=== PATIENT | male | born 1970 | race Caucasian/White ===

== ENCOUNTER 2022-06-26 02:07 | Outpatient (CLI) | payer OTHER, SELFPAY ==
[2022-06-26 07:29] LABS: HCT 45.5 % (40.0-50.0); HGB 15.1 g/dL (13.5-17.5); MCH 27.6 pg (27.0-33.0); MCHC 33.2 % (32.0-36.0); MCV 83 fL (80-95); MPV 9.6 fL (8.0-11.0); Platelet Count 155 10^3/uL (130-400); RBC 5.47 10^6/uL (4.36-5.78); RDW 12.5 % (11.8-14.1); RDW-SD 38.3 fL; WBC 6.96 10^3/uL (4.4-10.8)
[2022-06-26 08:52] LABS: ALT 28 U/L (16-63); AST 18 U/L (15-37); Albumin 3.6 g/dL (3.4-5.0); Alkaline Phosphatase 68 U/L (46-116); Anion Gap 9.9 mmol/L (3-11); BUN 12 mg/dL (7-18); Bilirubin, Total 0.4 mg/dL (0.2-1.0); CO2 27.1 mmol/L (21.0-32.0); Calcium 8.9 mg/dL (8.5-10.1); Chloride 105 mmol/L (98-107); Cholesterol 257 mg/dL (<200); Glucose 164 mg/dL (74-106); HDL Cholesterol 35 mg/dL (40-60); Potassium 4.3 mmol/L (3.5-5.1); Sodium 142 mmol/L (136-145); Total Protein 7.2 g/dL (6.4-8.2); Triglyceride 603 mg/dL (<150)
[2022-06-26 09:27] LABS: LDL CHOLESTEROL 89 mg/dL (<100)
== END 2022-06-26 02:08 | disposition home or self-care (01) ==
LOC: LBO 02:07
PROVIDERS: PCP Nurse Practitioner; Visit Provider Nurse Practitioner
DX: R73.03 Prediabetes; E66.01 Morbid (severe) obesity due to excess calories; E78.1 Pure hyperglyceridemia
CPT/HCPCS: 36415; 80053; 80061; 83721; 85027

== ENCOUNTER 2022-10-14 11:11 | Emergency (ER) | payer MEDICAID, SELFPAY ==
[2022-10-14 11:16] VITALS: BP 131/84; PULSE 86; RESP 14; TEMP 36.6; O2SAT 97
--- NOTE | 2022-10-14 12:00 | DI.RAD_ITS ---
Exam(s) XR FOOT LT COMPLETE EXAM: XR FOOT LT COMPLETE CLINICAL HISTORY: 1st MTP pain. TECHNIQUE: 2D digital imaging was performed of the left foot. Three images were obtained. AP, obli que and lateral views were obtained. COMPARISON: No exams were available for comparison FINDINGS: BONES: No acute fracture is present. No bony destructive lesion is seen. There is an enthesophyte at the posterior calcaneus. JOINTS: No dislocation present. The 1st MTP joint is well maintained. No erosions are seen. SOFT TISSUE: There is mild soft tissue swelling of the foot. No radiopaque foreign bodies. IMPRESSION: No acute fracture or dislocation. If there is concern for an occult fracture, consider follow-up x-r ay in 10-14 days. DATA REPOSITORY: RADIATION DOSE DELIVERED:
--- NOTE | 2022-10-14 12:11 | ED.GENADUL_ITS ---
Discharge Plan Disposition Patient Disposition: Home Discharge Details Clinical Impression: Swelling of first metatarsophalangeal (MTP) joint of left foot, Gout Primary Care Provider: Tammy Costello ED Provider: Edwin Cazares Home Meds and New Rx's Prescriptions: New colchicine 0.6 mg tablet 0.6 mg PO BID Qty: 20 0RF Rx Instructions: Please take twice a day until 2 days after symptoms of gout have resolved. Continued rosuvastatin [Crestor] 20 mg Tablet 20 mg PO DAILY Discharge Instructions Instructions: Gout (ED) Additional Instructions: You were seen in the emergency department for pain and swelling of your left first toe. Based off of the location you are likely experiencing podagra which is a presentation of gout with swelling and redness at your first joint of your first toe on the left. We performed an x-ray and some labs that were unremarkable. We offered to perform a joint aspiration of that digit but you wanted to hold off which I think is very reasonable. I sent a prescription for colchicine. Take this until 2 days after your symptoms resolve. You can also take ibuprofen 600 mg every 6 hours for discomfort for the next 5 days. You take at 1000 mg of Tylenol every 6 hours for the next 5 days. Follow-up with your primary care doctor about this visit. Return for any worsening symptoms, high fevers chills, or if the redness and swelling extends up the foot or up the leg. Referrals: Tammy Costello, [employer] [Primary Care Provider] - 1 week Discharge Data Discharge Physician: Edwin Cazares Medical Decision Making 52-year-old gentleman with history of hyperlipidemia presents with swelling and pain to the left first MTP. Based off clinical exam I suspect this represents gout. No history of trauma but will get x-ray to rule out fracture. Doubt infection given no other systemic symptoms and patient has a very high or at least a score of 9 on the acute gout diagnosis rule with a serum uric acid still pending. I offered to perform arthrocentesis of the left first MTP for the patient but he would like to hold off on this at this time which I think is very reasonable given very low clinical suspicion for septic arthritis of the left first MTP. Has had this in the joint in the past and also in the other foot which raises the clinical suspicion for gout. We will provide some analgesia While awaiting x-ray and uric acid level and reevaluate. Assuming patient's pain is improved and x-ray is unremarkable we will discharge with prescription for colchicine and have him take Tylenol and ibuprofen and have him follow-up with his primary care doctor. Medical Records Medical records reviewed: Yes I reviewed the patient's medical records. Imaging Data Radiologic Study: Imaging: X-Ray (left foot xray) My impression: Unremarkable Lab Data Lab results reviewed: Yes I reviewed the patient's lab results. Labs: Labs grossly unremarkable HPI General Mode of arrival: ambulatory . Date/Time Provider Initiated Documentation: 10/14/22 11:33 . Limitations to Documentation: no limitations . Information obtained by: patient and family . HPI Narrative: 52-year-old gentleman with history of hyperlipidemia is presenting with left first MTP pain. Says it started about his his EKG 48 to 72 hours ago. Worsening pain at that joint with redness and swelling. Says he had something similar in the past in the right first MTP. Has had it come and go and is never last this long. He took 1 dose of ibuprofen but had not had any improvement in symptoms. No fevers or chills. Denies any other rashes or lesions. Denies any trauma or injury. Denies any other complaints. Related Data Home Medications Medication Instructions Recorded Confirmed colchicine 0.6 mg tablet 0.6 mg PO BID #20 tabs 10/14/22 rosuvastatin 20 mg tablet (Crestor) 20 mg PO DAILY 10/14/22 10/14/22 Previous Rx's Medication Instructions Recorded colchicine 0.6 mg tablet 0.6 mg PO BID #20 tabs 10/14/22 Allergies Allergy/AdvReac Type Severity Reaction Status Date / Time Iodine and Iodide Containing Allergy Unknown Verified 10/14/22 11:20 Produc buprenorphine [From Buprenex] Allergy Verified 10/14/22 11:20 General Stated Complaint: GenMedical BEATRICE: 4 Review of Systems Constitutional Constitutional: Denies chills, Denies fever(s) and Denies headache(s) Eyes Eyes: Denies change in vision ENT Ears, Nose, Mouth, and Throat: Denies headache(s) and Denies odynophagia Cardiovascular Cardiovascular: Denies chest pain and Denies dyspnea Respiratory Respiratory: Denies dyspnea Gastrointestinal Gastrointestinal: Denies abdominal pain, Denies diarrhea, Denies nausea, Denies odynophagia and Denies vomiting Genitourinary Genitourinary: Denies dysuria Musculoskeletal Musculoskeletal: Denies myalgias Comments: painful, swollen and red 1st MTP of the left foot. Integumentary/Breasts Skin/Breast: Denies changing lesions Neurologic Neurologic: Denies behavioral changes and Denies headache(s) Psychiatric Psychiatric: Denies behavioral changes Endocrine Endocrine: Denies heat intolerance Hematologic/Lymphatic Hematologic/Lymphatic: Denies lymphadenopathy PFSH All Active Problems (Updated 10/14/22 @ 12:20 by Edwin Cazares MD) Swelling of first metatarsophalangeal (MTP) joint of left foot (Acute) Gout (Chronic) Morbid obesity with BMI of 45.0-49.9, adult (Acute) Hx of cholecystectomy (Chronic) Pre-diabetes (Acute) Hypertriglyceridemia (Acute) Intra-abdominal adhesions (Chronic) Counseled at [facility] that he will likely eventually need a complex revision in the future Medical History 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 Dr. Anderson Surgical History History of cholecystectomy 2005? 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, [employer] Sexually active: Yes Do you think of yourself as: straight/heterosexual Current gender identity: male What is your relationship status?: How often do you talk on the phone with friends or family?: three or more times per week How often do you get together with friends or relatives?: three or more times per week Do you belong to any clubs or organized social groups?: no Panel score (0-1 are the most socially isolated patients): 2 What type of physical activity do you participate in: none Nataly/Baptism: Mandaeism Special nataly needs: No Seatbelt use: sometimes Helmet use: No Drive intox or ride w/intox charter driver: No Working smoke detector in home: Yes Fire extinguisher in home: Yes Carbon monox detector in home: Yes Do you feel safe at home: Yes Do you feel safe in your relationship?: Yes Exam Const General: cooperative Nutritional Appearance: average body habitus Orientation: alert, awake and oriented x3 HENMT Head: normal to inspection Ears: external ears normal Mouth: moist mucous membranes Eyes Pupils: PERRL EOM: EOM intact bilaterally and No nystagmus Neck Neck: full ROM and no tracheal deviation Chest Chest: normal inspection of the chest Resp Auscultation: clear to auscultation bilaterally Cardio Rate: regular rate Rhythm: regular rhythm GI Inspection: normal to inspection Palpation: soft, no guarding, not rigid and nontender Back/Spine/Pelvis Back: No no CVA tenderness Thoracic/Lumbar Spine: thoracic and lumbar spine normal to inspection Skin General skin exam: no rashes or lesions noted Neuro General: patient alert, patient awake and patient oriented x3 Cranial Nerves: CN's II-XI intact bilaterally, PERRL and no nystagmus Cognition: normal cognition Motor: muscle tone normal throughout and strength 5/5 throughout Sensory Exam: no sensory deficits noted Extrem General: normal to inspection Other: Swelling redness and tenderness to the first MTP of the left foot. No other surrounding redness or tenderness. Full range of motion of all joints of the bilateral lower extremities. 2+ DP and PT pulses. Sensation and motor intact in the bilateral lower extremities. No other rashes or lesions. Course Vital Signs Vital signs: Vital Signs Temperature 36.6 C 10/14/22 11:16 Pulse 86 10/14/22 11:16 Respiratory Rate 14 10/14/22 11:16 Blood Pressure 131/84 10/14/22 11:16 Pulse Oximetry 97 10/14/22 11:16 Temperature 36.6 C 10/14/22 11:16 Temperature Source Tympanic 10/14/22 11:16 Pulse 86 10/14/22 11:16 Respiratory Rate 14 10/14/22 11:16 Respiratory Effort Normal, Non-Labored 10/14/22 11:22 Blood Pressure 131/84 10/14/22 11:16 Blood Pressure Position Sitting 10/14/22 11:16 Pulse Oximetry 97 10/14/22 11:16 Oxygen Delivery Method Room Air 10/14/22 11:16 Oxygen Flow Rate 0 10/14/22 11:16 Pain Level 4 10/14/22 11:16
[2022-10-14] MEDS: Colchicine 0.6 MG TAB PO (12:26)
[2022-10-14] MEDS: Ibuprofen 600 MG TAB PO (12:26)
[2022-10-14] MEDS: Acetaminophen 500 MG TAB 1000 MG PO (12:26)
[2022-10-14 12:46] LABS: Abs Immature Grans 0.02 10^3/uL (0.0-0.06); Absolute Basophil Count 0.03 10^3/uL (0.0-0.2); Absolute Eosinophil Count 0.11 10^3/uL (0.0-0.7); Absolute Lymphocyte Count 1.37 10^3/uL (1.2-3.4); Absolute Monocyte Count 0.43 10^3/uL (0.1-0.8); Absolute Neutrophil Count 4.27 10^3/uL (1.2-6.7); Basophils % 0.5; Eosinophils % 1.8; HCT 43.7 % (40.0-50.0); HGB 14.8 g/dL (13.5-17.5); Immature Grans % 0.3; MCHC 33.9 % (32.0-36.0); MCV 83 fL (80-95); MPV 9.7 fL (8.0-11.0); Monocytes % 6.9; Neutrophils % 68.5; Platelet Count 170 10^3/uL (130-400); RBC 5.28 10^6/uL (4.36-5.78); RDW 12.6 % (11.8-14.1); RDW-SD 38.2 fL; WBC 6.23 10^3/uL (4.4-10.8)
[2022-10-14 12:48] LABS: ESR 13 mm/hr (0-20)
[2022-10-14 12:58] LABS: ALT 33 U/L (16-63); AST 17 U/L (15-37); Albumin 3.7 g/dL (3.4-5.0); Alkaline Phosphatase 69 U/L (46-116); Anion Gap 7.1 mmol/L (3-11); BUN 14 mg/dL (7-18); Bilirubin, Total 0.5 mg/dL (0.2-1.0); C-Reactive Protein 0.92 mg/dL (0.0-0.3); CO2 25.9 mmol/L (21.0-32.0); Calcium 8.8 mg/dL (8.5-10.1); Chloride 108 mmol/L (98-107); Glucose 160 mg/dL (74-106); Potassium 4.3 mmol/L (3.5-5.1); Sodium 141 mmol/L (136-145); Total Protein 7.4 g/dL (6.4-8.2); Uric Acid 6.9 mg/dL (3.5-7.2)
--- NOTE | 2022-10-14 13:12 | DI.VRAD_ITS ---
PROCEDURE INFORMATION: Exam: XR Left Foot Exam date and time: 10/14/2022 12:57 PM Age: 52 years old Clinical indication: Other: Lat mtp pain TECHNIQUE: Imaging protocol: Radiologic exam of the left foot. Views: 3 or more views. COMPARISON: No relevant prior studies available. FINDINGS: Bones/joints: No acute fracture or malalignment small plantar and dorsal calcaneal spurs. Normal variant stated process. No agressive bone destruction. Soft tissues: Soft tissue swelling, predominantly of the dorsal forefoot. IMPRESSION: 1. No acute osseous findings. Soft tissue swelling, predominantly of the dorsal forefoot. 2. If clinical concern for occult fracture, consider followup radiographs in 10-14 days. Dictated and Authenticated by: Shira Barnett MD. Ordering:ROSMERY Pineda MD
[2022-10-14 13:28] VITALS: BP 131/84; PULSE 86; RESP 14; TEMP 36.6; O2SAT 97
== END 2022-10-14 13:28 | disposition home or self-care (01) ==
PROVIDERS: Emergency Provider Student in an Organized Health Care Education/Training Program; PCP Nurse Practitioner
DX: M10.9 Gout, unspecified (principal); M25.475 Effusion, left foot
CPT/HCPCS: 36415; 80053; 85652; 99283; 73630; 84550; 85025; 86140

== ENCOUNTER 2022-11-05 03:15 | Outpatient (CLI) | payer MEDICAID, SELFPAY ==
[2022-11-05 12:07] LABS: Calculated LDL 41 mg/dL (<100); Cholesterol 153 mg/dL (<200); HDL Cholesterol 36 mg/dL (40-60); Triglyceride 382 mg/dL (<150)
[2022-11-05 12:28] LABS: Vitamin D 25 Total 10.7 ng/mL (30-100)
[2022-11-06 09:46] LABS: Hepatitis C Ab w Rflx HCV PCR Negative (Negative)
[2022-11-06 11:11] LABS: HIV-1/2 Ag & Ab Screen Negative (Negative)
== END 2022-11-05 03:16 | disposition home or self-care (01) ==
LOC: LBO 03:15
PROVIDERS: PCP Nurse Practitioner; Visit Provider Nurse Practitioner
DX: E78.1 Pure hyperglyceridemia; E55.9 Vitamin D deficiency, unspecified; H93.11 Tinnitus, right ear; H90.41 Sensorineural hearing loss, unilateral, right ear, with unrestricted hearing on the contralateral side
CPT/HCPCS: 36415; 80061; 82306; 86803; 87389

== ENCOUNTER 2022-12-03 02:51 | Outpatient (CLI) | payer MEDICAID, SELFPAY ==
--- NOTE | 2022-12-03 07:15 | DI.MRI_ITS ---
Exam(s) MR IAC BRAIN WO/W EXAM: MR IAC BRAIN WO/W CLINICAL HISTORY: asymmetrical hearing loss, tinnitus rt ear,h90.3,h93.11. TECHNIQUE: Multiplanar multisequence MRI of the brain and internal auditory canals was performed. CONTRAST MATERIAL: IV Contrast: 20 mL of Dotarem contrast administered. COMPARISON: There are no priors for comparison. FINDINGS: VENTRICLES AND EXTRA AXIAL SPACES: Normal in size and morphology for the patient's age. HEMORRHAGE: None. CEREBRAL PARENCHYMA: No focus of restricted diffusion to suggest acute infarct. No space-occupying le carmen identified. There are few nonspecific foci of hyperintense signal in the white matter on the T2 and FLAIR images which may represent early small vessel ischemic disease. MIDLINE SHIFT: None. BRAINSTEM/CEREBELLUM: Normal. CALVARIUM: Normal. ENHANCEMENT: No suspicious enhancement identified. VISUALIZED PARANASAL SINUSES/MASTOIDS: Mucous retention cysts or polyps are seen in the maxillary sin uses bilaterally. [place]: Normal flow void. PITUITARY GLAND: Unremarkable. IAC/CP ANGLE: The internal auditory canals are within normal limits. The cerebellar pontine angles ar e unremarkable. No enhancing lesions are seen. Visualized portion of the facial nerves appear within normal limits. OTHER FINDINGS: None. IMPRESSION: 1. There is no enhancing mass seen in the IAC's. 2. Nonspecific white matter signal which may represent early small vessel ischemic disease. 3. Mucous retention cysts or polyps in the maxillary sinuses bilaterally. 4. No evidence of an acute infarct. DATA REPOSITORY:
[2022-12-03] MEDS: Normal Saline Flush 10 ML SYR IVP (10:05)
[2022-12-03] MEDS: Gadoterate meglumine 20 ML SYRINGE IVP (10:06)
== END 2022-12-03 03:11 ==
LOC: DI 02:51
PROVIDERS: PCP Nurse Practitioner; Visit Provider Registered Nurse Maternal Newborn
DX: H90.3 Sensorineural hearing loss, bilateral (principal); H93.11 Tinnitus, right ear; J34.1 Cyst and mucocele of nose and nasal sinus
CPT/HCPCS: 70553

== ENCOUNTER 2023-01-24 02:24 | Outpatient (CLI) | payer BC, SELFPAY ==
[2023-01-24 11:23] LABS: Anion Gap 3.7 mmol/L (3-11); BUN 12 mg/dL (7-18); CO2 30.3 mmol/L (21.0-32.0); Chloride 104 mmol/L (98-107); Glucose 167 mg/dL (74-106); Potassium 4.1 mmol/L (3.5-5.1); Sodium 138 mmol/L (136-145)
== END 2023-01-24 02:25 | disposition home or self-care (01) ==
PROVIDERS: PCP Nurse Practitioner; Visit Provider Internal Medicine Cardiovascular Disease
DX: I10 Essential (primary) hypertension (principal)
CPT/HCPCS: 36415; 80048

== ENCOUNTER 2023-08-19 04:22 | Outpatient (CLI) | payer BC, MEDICAID, SELFPAY ==
[2023-08-19 14:25] LABS: ALT 36 U/L (16-63); AST 17 U/L (15-37); Albumin 3.7 g/dL (3.4-5.0); Alkaline Phosphatase 76 U/L (46-116); Anion Gap 10.9 mmol/L (3-11); BUN 15 mg/dL (7-18); Bilirubin, Total 0.6 mg/dL (0.2-1.0); CO2 26.1 mmol/L (21.0-32.0); Calcium 9.1 mg/dL (8.5-10.1); Chloride 107 mmol/L (98-107); Cholesterol 234 mg/dL (<200); Estimated GFR 89.44 (mL/min/1.73m2); Glucose 108 mg/dL (74-106); HDL Cholesterol 39 mg/dL (40-60); Sodium 144 mmol/L (136-145); Total Protein 7.3 g/dL (6.4-8.2); Triglyceride 469 mg/dL (<150)
[2023-08-19 14:46] LABS: Vitamin D 25 Total 20.5 ng/mL (30-100)
[2023-08-19 15:03] LABS: LDL CHOLESTEROL 87 mg/dL (<100)
== END 2023-08-19 04:23 | disposition home or self-care (01) ==
LOC: LBO 04:22
PROVIDERS: PCP Nurse Practitioner; Visit Provider Nurse Practitioner
DX: E78.2 Mixed hyperlipidemia (principal); I71.21 Aneurysm of the ascending aorta, without rupture; E55.9 Vitamin D deficiency, unspecified
CPT/HCPCS: 36415; 80053; 80061; 82306; 83721

== ENCOUNTER 2023-11-18 09:35 | Emergency (ER) | payer MEDICAID, SELFPAY ==
[2023-11-18] VITALS (55 sets, daily range): BP systolic 88–165; BP diastolic 51–92; PULSE 88–122; RESP 8–32; TEMP 37.5–40; O2SAT 91–98
--- NOTE | 2023-11-18 09:30 | DI.CT_ITS ---
Exam(s) CT THORAX ABD/PEL CTA EXAM: CT THORAX ABD/PEL CTAzz CLINICAL HISTORY: Fever, Hx of Aortic Anuerysm. TECHNIQUE: Imaging Protocol: Axial CT angiography was performed with multi-slice acquisition and m ulti-planar and/or 3D reconstructions. CONTRAST MATERIAL: Intravenous: Omnipaque 350 Contrast volume:structured data in ml Oral: no COMPARISON: No exams were available for comparison FINDINGS: CHEST: Pulmonary Arteries: No evidence of filling defect to suggest pulmonary emboli. Tracheobronchial tree: Patent where visualized. Mediastinum and [place]: No dominant adenopathy or fluid collection. Pulmonary parenchyma: No consolidation or dominant measurable mass. No architectural distortion. Pleura: No effusion or pneumothorax. Heart: The heart is not dilated. Mild coronary artery calcifications are seen. Aorta: Thoracic aorta non-dilated. No significant atherosclerotic changes. Bones: Normal. Tubes, Catheters, and Lines: ABDOMEN AND PELVIS: Abdomen: Celiac axis/mesenteric arteries: No evidence of occlusion or significant stenosis. Renal Arteries: No evidence of occlusion or significant stenosis. Single right renal artery. Two le ft renal arteries, with accessory left renal artery to upper pole. Aorta: No evidence of occlusion or significant stenosis. No aneurysm or dissection. No significant atherosclerotic changes Pelvis: Iliac Arteries: No evidence of occlusion or significant stenosis. Common Femoral Arteries: No evidence of occlusion or significant stenosis. ABDOMEN: Liver: Normal density. No measurable mass. Portal, Superior Mesenteric, and Splenic Veins: Unremarkable. Gallbladder and Biliary Tract: Cholecystectomy. No radiodense calculus or dilation. Pancreas: Normal density, no abnormal calcifications or inflammatory process. Spleen: Normal. Adrenals: No masses seen. Kidneys: Normal size, contour and axis. Small nonobstructing stone lower pole left kidney. No masses seen. Bowel: No obstruction or bowel wall thickening. Appendix is unremarkable. Peritoneal Cavity: No ascites, collection or mesenteric inflammatory response. Lymph Nodes: Within normal limits. Bones: Unremarkable. Soft Tissues: Small fatty containing left inguinal hernia. Some dehiscence of the anterior are abdom inal wall musculature. PELVIS: Bladder: Symmetric distention, no gross wall thickening. Reproductive Organs: Prostate enlarged. Lymph Nodes: Within normal limits. Bones: Within normal limits. IMPRESSION: Normal CT Angiogram of the chest, abdomen and pelvis. No acute abnormality in the chest abdomen or p caren. RADIATION DOSE DELIVERED: 2,564.24mGy.cm Total DLP DATA REPOSITORY: All CT scans at this facility are submitted to the National Radiology Data Registry (NRDR) Dose Index Registry (DIR) with the [employer] (ACR). RADIATION OPTIMIZATION: All CT scans at this facility use at least one of these dose optimization te chniques: automated exposure control; mA and/or kV adjustment per patient size (includes targeted exa ms where dose is matched to clinical indication); or iterative reconstruction.
--- NOTE | 2023-11-18 09:30 | RT.EKG_ITS ---
APPROVED REPORT Exam: Resting ECG Reason for Exam: High Fever Patient Location: E HR:108 bpm ECG Measurements Heart Rate 108 AXIS MT 154 P 15 QRSd 92 QRS 70 QT 319 T 30 QTc 428 Conclusion Sinus tachycardia...rate> 99
--- NOTE | 2023-11-18 09:44 | W.ED.GENAD ---
Discharge Plan Disposition Patient Disposition: Home Condition: Stable Discharge Details Clinical Impression: Fever, Vomiting, Hypomagnesemia Primary Care Provider: Tammy Costello ED Provider: Adelaida Gonzales Home Meds and New Rx's Prescriptions: New cephalexin 500 mg capsule 500 mg PO BID 10 Days Qty: 20 0RF Rx Instructions: Take 1 tablet twice daily by mouth for the next 10 days ondansetron 4 mg tablet,disintegrating 4 mg PO Q8H 5 Days Qty: 15 0RF No Action losartan 25 mg tablet 25 mg PO DAILY cholecalciferol (vitamin D3) 1,250 mcg (50,000 unit) capsule 1,250 mcg PO QWEEK Qty: 12 3RF atorvastatin 40 mg tablet 40 mg PO QPM Qty: 90 1RF metformin 500 mg tablet extended release 24 hr 1,000 mg PO BID Qty: 180 1RF Discharge Instructions Instructions: Low Magnesium Level, Fever, Adult ED, Nausea and vomiting in adults Additional Instructions: This time you have had a very high fever. There is no evidence of aneurysm, heart attack, or infection. CT abdomen pelvis was completed. You have slightly elevated white blood cell count of 14, your magnesium was slightly low which was given to you here. Please consider taking medications to supplement this over the next couple of days and food content high in magnesium. Take the nausea medication as directed. Follow up with primary care provider in 3-5 days. Return to ED sooner if any worsening or concerns. Increase oral fluids. Return to the ER for any worsening fever, worsening abdominal pain, nausea vomiting diarrhea or concerns. Continue your other medications as previously prescribed. Referrals: Tammy Costello, RONALD [Primary Care Provider] - 5 days Discharge Data Discharge Date/Time-TO BE ENTERED AT DEPARTURE: 11/18/23 15:19 HPI General Mode of arrival: EMS. Date/Time Provider Initiated Documentation: 11/18/23 09:40. Limitations to Documentation: no limitations. Information obtained by: patient, EMS, RN notes reviewed and old records reviewed. HPI Narrative: 53-year-old male presents to the ER via EMS with a chief complaint of fever of [id number] on scene he was found and seen on his in his car after driving [place]. He reports that last night he took his son's fishing. He does have rigors upon arrival he is alert and oriented denies any chest pain or abdominal pain, he is hypertherapeutic. Other past medical history includes high cholesterol hypertension, diabetes does take metformin, and a 4 cm aortic aneurysm. He reports that it began with his leg hurting which has since resolved. Other past medical history includes snoring and Meckel's diverticulum. Related Data Home Medications Medication Instructions Recorded Confirmed losartan 25 mg tablet 25 mg PO DAILY 01/15/23 11/18/23 atorvastatin 40 mg tablet 40 mg PO QPM #90 tabs 08/20/23 11/18/23 cholecalciferol (vitamin D3) 1,250 1,250 mcg PO QWEEK #12 caps 08/20/23 11/18/23 mcg (50,000 unit) capsule metformin 500 mg tablet,extended 1,000 mg (2 x 500 mg) PO BID #180 09/23/23 11/18/23 release 24 hr tabs cephalexin 500 mg capsule 500 mg PO BID fever 10 days #20 11/18/23 caps ondansetron 4 mg disintegrating 4 mg PO Q8H 5 days #15 tabs 11/18/23 tablet Previous Rx's Medication Instructions Recorded atorvastatin 40 mg tablet 40 mg PO QPM #90 tabs 08/20/23 cholecalciferol (vitamin D3) 1,250 1,250 mcg PO QWEEK #12 caps 08/20/23 mcg (50,000 unit) capsule metformin 500 mg tablet,extended 1,000 mg (2 x 500 mg) PO BID #180 09/23/23 release 24 hr tabs cephalexin 500 mg capsule 500 mg PO BID fever 10 days #20 11/18/23 caps ondansetron 4 mg disintegrating 4 mg PO Q8H 5 days #15 tabs 11/18/23 tablet Allergies Allergy/AdvReac Type Severity Reaction Status Date / Time buprenorphine [From Buprenex] Allergy unknown Verified 11/18/23 10:28 Iodine and Iodide Containing AdvReac Mild Nausea Verified 11/18/23 10:28 Produc General Stated Complaint: Fever BEATRICE: 3 Review of Systems All systems reviewed & are unremarkable except as noted in HPI and below Constitutional Constitutional: Reports as per HPI, Reports body ache(s), Reports chills and Reports fever(s) Musculoskeletal Musculoskeletal: Reports as per HPI and Reports muscle cramps Exam Narrative Exam Narrative: Constitutional: Alert and oriented x3. Appears stated age. Obese body habitus. Upon arrival patient is having rigors, febrile, alert and oriented hot to touch, tachycardic. Head: Normocephalic, no trauma. Eyes: Pupils PERRL, Red reflex noted, EOM's intact. Eyelids symmetrical without lesions, discharge, or swelling. ENT: Bilateral TM's WNL, External ear normal to inspection, no mastoid TTP, swelling, or erythema, Nasal turbinates WNL, no nasal discharge. Normal dentition, Posterior pharynx WNL, no exudate. Chest: Sinus tachycardia, normal S1, S2, distal pulses intact. Resp: Lungs clear to auscultation bilaterally, no wheezes, rales, or rhonchi. Abdomen: Soft, non-distended, Normoactive bowel sounds all 4 quads. Musculoskeletal: unable to assess gait, DTRs intact bilaterally, no wounds or lesions noted, does have small amount of sunburn noted to his bilateral anterior shins, moves all 4 extremities without difficulty. Skin: He does have some healed surgical scars noted to his CHARIS umbilicus and right upper quadrant, he also has a lesion which she reports that he injured his belly while at work seems to be healing, no drainage surrounding erythema or induration noted, capillary refill less than 2 sec. Neurologic: Cranial nerves II-XII intact. Alert and oriented x 3. Motor: No deficits noted. Sensory: Intact bilaterally all 4 extremities. Hematologic/Lymphatic: No ecchymosis, no lymphadenopathy. Course Vital Signs Vital signs: Vital Signs Temperature 40.0 C H 11/18/23 09:37 Pulse 111 H 11/18/23 09:37 Respiratory Rate 20 11/18/23 09:37 Blood Pressure 165/92 H 11/18/23 09:37 Pulse Oximetry 95 11/18/23 09:37 Temperature 40.0 C H 11/18/23 09:37 Temperature Source Oral 11/18/23 09:37 Pulse 111 H 11/18/23 09:37 Respiratory Rate 20 11/18/23 09:37 Blood Pressure 165/92 H 11/18/23 09:37 Blood Pressure Position Sitting 11/18/23 09:37 Pulse Oximetry 95 11/18/23 09:37 Oxygen Delivery Method Room Air 11/18/23 09:37 Oxygen Flow Rate 0 11/18/23 09:37 Pain Level 0 11/18/23 09:37 Medical Decision Making Initial workup ordered including blood cultures x 2, lactate, PT PTT INR CBC CMP, troponin EKG CT thorax abdomen pelvis. Will give IV Tylenol for fever. Informed that patient has a adverse reaction to IV dye which gives him nausea. Patient medicated with 4 of Zofran prior to imaging. Initial workup is largely unremarkable, slight leukocytosis white blood cell count 14.72, neutrophils 12.81, lactate slightly elevated at 1.6, magnesium low at 1.5, initial troponin within normal limits, negative urinalysis no evidence of UTI negative sites. Tylenol salicylates within normal limits, UDS negative. Ethyl alcohol less than 3.0. On patient reevaluation he reports he is feeling somewhat better however his blood pressure is now downtrending at 98 systolic. He is alert and oriented. Patient received 1 g of magnesium sulfate IV piggyback, Will add on a tick and Lyme panel to be sent, give another liter of normal saline for total of 2 L, and 2 g of Rocephin. COVID swab ordered which is pending at this time. Patient denies any chest pain shortness of breath or cough. He does see cardiology at [facility] for previous unresponsive episodes and does have PCP Dr. Tammy Costello here locally. Differential diagnosis includes but not limited to UTI, AAA, abdominal infection, gastroenteritis, COVID, viral illness, heatstroke or heat exhaustion, electrolyte disturbance, less likely meningitis patient is alert and oriented x 4 denies any nuchal rigidity, he has no wounds to suggest cellulitis. Informed that patient is dry heaving, 4 mg of Zofran given. Instructed on home care to increase oral fluids take Tylenol ibuprofen as needed for fever, given cephalexin 500 mg twice daily x 10 days, instructed to follow-up with PCP within the next week. Patient verbalized understanding. At this time is unknown source of fever could be related to heat exhaustion or heat stroke. Patient discharged in hemodynamically stable condition and is improving. Blood cultures are pending at this time and tick and Lyme panel is pending. This text was generated using [employer] system, please disregard any oddities of phrase or misspellings. Medical Records Medical records reviewed: Yes I reviewed the patient's medical records. Lab Data Lab results reviewed: Yes I reviewed the patient's lab results. Lab results narrative: 11/18/23 11:00 Blood Blood Culture - Pending 11/18/23 10:10 Blood Blood Culture - Pending Laboratory Tests Range/Units 11/18/23 11/18/23 11/18/23 09:50 10:10 11:10 WBC (4.4-10.8) 10^3/uL 14.72 H RBC (4.36-5.78) 10^6/uL 5.31 Hgb (13.5-17.5) g/dL 14.7 Hct (40.0-50.0) % 44.4 MCV (80-95) fL 84 MCH (27.0-33.0) pg 27.7 MCHC (32.0-36.0) % 33.1 RDW (11.8-14.1) % 12.4 Plt Count (130-400) 10^3/uL 154 MPV (8.0-11.0) fL 9.3 Immature Gran % % 0.3 Neutrophils % % 87.0 Lymphocytes % % 9.2 Monocytes % % 3.0 Eosinophils % % 0.2 Basophils % % 0.3 Nucleated RBC % (0.0-0.3) % 0.0 Absolute Neutrophils (1.2-6.7) 10^3/uL 12.81 H Absolute Lymphocytes (1.2-3.4) 10^3/uL 1.35 Absolute Monocytes (0.1-0.8) 10^3/uL 0.44 Absolute Eosinophils (0.0-0.7) 10^3/uL 0.03 Absolute Basophils (0.0-0.2) 10^3/uL 0.04 PT (9.1-11.1) sec 10.7 INR (0.9-1.1) 1.1 APTT (23.6-32.8) sec 25.3 VBG Lactate (0.6-1.4) mmol/L 1.6 H Sodium (136-145) mmol/L 141 Potassium (3.5-5.1) mmol/L 3.6 Chloride (98-107) mmol/L 104 Carbon Dioxide (21.0-32.0) mmol/L 29.9 Anion Gap (3-11) mmol/L 7.1 BUN (7-18) mg/dL 13 Creatinine (0.70-1.30) mg/dL 1.1 Est GFR (CKD-EPI 2020) (mL/min/1.73m2) 79.77 Glucose (74-106) mg/dL 167 H Calcium (8.5-10.1) mg/dL 8.8 Magnesium (1.8-2.4) mg/dL 1.5 L Total Bilirubin (0.2-1.0) mg/dL 0.63 AST (15-37) U/L 16 ALT (16-63) U/L 41 Alkaline Phosphatase (46-116) U/L 70 Troponin I (< or =60) ng/L < 50 Total Protein (6.4-8.2) g/dL 7.1 Albumin (3.4-5.0) g/dL 3.7 Urine Color (Yellow) Yellow Urine Clarity (Clear) Clear Urine pH (5-8) 5.0 Ur Specific [place] (1.005-1.025) 1.020 Urine Protein (Neg-Trace) mg/dL Negative Urine Ketones (Negative) mg/dL Negative Urine Blood (Negative) Negative Urine Nitrite (Negative) Negative Urine Bilirubin (Negative) Negative Urine Urobilinogen (Up to 0.2) mg/dL 0.2 Ur Leukocyte Esterase (Negative) Negative Urine Glucose (Negative) mg/dL Negative Salicylates (<2.8) mg/dL < 2.8 Urine Opiates Screen (Negative) Negative Urine Methadone Screen (Negative) Negative Acetaminophen (10-30) ug/mL < 2 Ur Barbiturates Screen (Negative) Negative Ur Tricyclics Screen (Negative) Negative Ur Amphetamines Screen (Negative) Negative U Benzodiazepines Scrn (Negative) Negative Urine Cocaine Screen (Negative) Negative Ur THC Screen (Negative) Negative Ethyl Alcohol (<10) mg/dL < 3.0 COVID-19 Source SARS-CoV-2 (PCR) (Negative) Range/Units 11/18/23 11/18/23 12:45 13:20 WBC (4.4-10.8) 10^3/uL RBC (4.36-5.78) 10^6/uL Hgb (13.5-17.5) g/dL Hct (40.0-50.0) % MCV (80-95) fL MCH (27.0-33.0) pg MCHC (32.0-36.0) % RDW (11.8-14.1) % Plt Count (130-400) 10^3/uL MPV (8.0-11.0) fL Immature Gran % % Neutrophils % % Lymphocytes % % Monocytes % % Eosinophils % % Basophils % % Nucleated RBC % (0.0-0.3) % Absolute Neutrophils (1.2-6.7) 10^3/uL Absolute Lymphocytes (1.2-3.4) 10^3/uL Absolute Monocytes (0.1-0.8) 10^3/uL Absolute Eosinophils (0.0-0.7) 10^3/uL Absolute Basophils (0.0-0.2) 10^3/uL PT (9.1-11.1) sec INR (0.9-1.1) APTT (23.6-32.8) sec VBG Lactate (0.6-1.4) mmol/L Sodium (136-145) mmol/L Potassium (3.5-5.1) mmol/L Chloride (98-107) mmol/L Carbon Dioxide (21.0-32.0) mmol/L Anion Gap (3-11) mmol/L BUN (7-18) mg/dL Creatinine (0.70-1.30) mg/dL Est GFR (CKD-EPI 2020) (mL/min/1.73m2) Glucose (74-106) mg/dL Calcium (8.5-10.1) mg/dL Magnesium (1.8-2.4) mg/dL Total Bilirubin (0.2-1.0) mg/dL AST (15-37) U/L ALT (16-63) U/L Alkaline Phosphatase (46-116) U/L Troponin I (< or =60) ng/L < 50 Total Protein (6.4-8.2) g/dL Albumin (3.4-5.0) g/dL Urine Color (Yellow) Urine Clarity (Clear) Urine pH (5-8) Ur Specific [place] (1.005-1.025) Urine Protein (Neg-Trace) mg/dL Urine Ketones (Negative) mg/dL Urine Blood (Negative) Urine Nitrite (Negative) Urine Bilirubin (Negative) Urine Urobilinogen (Up to 0.2) mg/dL Ur Leukocyte Esterase (Negative) Urine Glucose (Negative) mg/dL Salicylates (<2.8) mg/dL Urine Opiates Screen (Negative) Urine Methadone Screen (Negative) Acetaminophen (10-30) ug/mL Ur Barbiturates Screen (Negative) Ur Tricyclics Screen (Negative) Ur Amphetamines Screen (Negative) U Benzodiazepines Scrn (Negative) Urine Cocaine Screen (Negative) Ur THC Screen (Negative) Ethyl Alcohol (<10) mg/dL COVID-19 Source Nasopharynx SARS-CoV-2 (PCR) (Negative) Negative Quality:SDOH Health Related Social Needs: No Data to Display PFSH All Active Problems (Updated 11/18/23 @ 14:58 by Adelaida Gonzales, RONALD) Hypomagnesemia (Acute) Vomiting (Acute) Fever (Acute) Vestibular dysfunction of right ear (Acute) Frequent headaches (Acute) Tubulovillous adenoma (Acute) Post-nasal drip (Acute) Tinnitus of right ear (Acute) Asymmetrical sensorineural hearing loss (Acute) Abnormality of right ventricle of heart (Acute ~10/2022) 10/12/22 Cardiology Aneurysm of the ascending aorta, without rupture (Acute ~10/2022) 10/12/22 Cardiology Mixed hyperlipidemia (Acute ~10/2022) 10/12/22 Cardiology PITER (obstructive sleep apnea) (Chronic ~10/2022) 02/13/23 sleep study, F/U with Sleep Clinic on 05/31/23 and CPAP ordered on 05/24/23. Morbid obesity with BMI of 45.0-49.9, adult (Acute) Hx of cholecystectomy (Chronic) Pre-diabetes (Acute) Hypertriglyceridemia (Acute) Intra-abdominal adhesions (Chronic) [place] [facility] [place] will likely eventually need a complex revision in the future Medical History (Updated 11/18/23 @ 14:58 by Adelaida Gonzales, RONALD) Snoring 02/08/23 Sleep Clinic Consult, PSG planned Meckels diverticulum 05/1993: [facility]. Dr. Anderson Surgical History History of cholecystectomy 2005? 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, [employer] Sexually active: Yes Do you think of yourself as: straight/heterosexual Current gender identity: male What is your relationship status?: How often do you talk on the phone with friends or family?: three or more times per week How often do you get together with friends or relatives?: three or more times per week Do you belong to any clubs or organized social groups?: no Panel score (0-1 are the most socially isolated patients): 2 What type of physical activity do you participate in: none Nataly/Jain: Holiness Special nataly needs: No Seatbelt use: sometimes Helmet use: No Drive intox or ride w/intox motorcycle delivery driver: No Working smoke detector in home: Yes Fire extinguisher in home: Yes Carbon monox detector in home: Yes Do you feel safe at home: Yes Do you feel safe in your relationship?: Yes
[2023-11-18 09:56] LABS: Lactate 1.6 mmol/L (0.6-1.4)
[2023-11-18 09:59] LABS: Abs Immature Grans 0.05 10^3/uL (0.0-0.06); Absolute Eosinophil Count 0.03 10^3/uL (0.0-0.7); Absolute Lymphocyte Count 1.35 10^3/uL (1.2-3.4); Absolute Monocyte Count 0.44 10^3/uL (0.1-0.8); Basophils % 0.3 %; Eosinophils % 0.2 %; HCT 44.4 % (40.0-50.0); HGB 14.7 g/dL (13.5-17.5); Immature Grans % 0.3 %; Lymphocytes % 9.2 %; MCH 27.7 pg (27.0-33.0); MCHC 33.1 % (32.0-36.0); MCV 84 fL (80-95); MPV 9.3 fL (8.0-11.0); Platelet Count 154 10^3/uL (130-400); RBC 5.31 10^6/uL (4.36-5.78); RDW 12.4 % (11.8-14.1); RDW-SD 37.6 fL; WBC 14.72 10^3/uL (4.4-10.8)
[2023-11-18 10:01] LABS: Absolute Basophil Count 0.04 10^3/uL (0.0-0.2); Absolute Neutrophil Count 12.81 10^3/uL (1.2-6.7)
[2023-11-18] MEDS: Ibuprofen 600 MG TAB PO (10:05)
[2023-11-18] MEDS: ACETAMINOPHEN 1,000 MG/100 ML BTL 400 MG IVPB (10:05)
[2023-11-18] MEDS: Normal Saline 1,000 ML 1000 ML IV ×2 (10:07→13:54)
[2023-11-18 10:16] LABS: ALT 41 U/L (16-63); AST 16 U/L (15-37); Albumin 3.7 g/dL (3.4-5.0); Alkaline Phosphatase 70 U/L (46-116); Anion Gap 7.1 mmol/L (3-11); BUN 13 mg/dL (7-18); Bilirubin, Total 0.63 mg/dL (0.2-1.0); CO2 29.9 mmol/L (21.0-32.0); CREATININE 1.1 mg/dL (0.70-1.30); Calcium 8.8 mg/dL (8.5-10.1); Chloride 104 mmol/L (98-107); Estimated GFR 79.77 (mL/min/1.73m2); Glucose 167 mg/dL (74-106); Magnesium 1.5 mg/dL (1.8-2.4); Potassium 3.6 mmol/L (3.5-5.1); Sodium 141 mmol/L (136-145); Total Protein 7.1 g/dL (6.4-8.2); Troponin I < 50 ng/L (< or =60)
[2023-11-18 10:17] LABS: ETHANOL BLOOD < 3.0 mg/dL (<10)
[2023-11-18] MEDS: Ondansetron 4 MG/2 ML VIAL (10:29)
[2023-11-18] MEDS: Normal Saline - Diluent 50 ML VIAL IJ (10:32)
[2023-11-18] MEDS: Omnipaque 350 MG/ML 100 ML BTL IJ (10:33)
[2023-11-18 10:35] LABS: INR 1.1 (0.9-1.1); PTT Activated 25.3 sec (23.6-32.8); Prothrombin Time 10.7 sec (9.1-11.1)
[2023-11-18] MEDS: Omnipaque 350 MG/ML 50 ML BTL 25 ML IJ (10:36)
[2023-11-18 10:39] LABS: Salicylate < 2.8 mg/dL (<2.8)
[2023-11-18 10:40] LABS: Acetaminophen < 2 ug/mL (10-30)
[2023-11-18] MEDS: MAGNESIUM SULFATE 1 GM/100 ML BAG IVINF (11:09)
[2023-11-18 11:40] LABS: Bilirubin Negative (Negative); Blood Negative (Negative); Clarity Clear (Clear); Glucose Negative (Negative); Ketones Negative (Negative); Leukocyte Esterase Negative (Negative); Nitrite Negative (Negative); Urobilinogen 0.2 mg/dL (Up to 0.2)
[2023-11-18 11:56] LABS: *AMPHETAMINES SCREEN URINE Negative (Negative); *BARBITURATES SCREEN URINE Negative (Negative); *BENZODIAZEPINES SCREEN URINE Negative (Negative); Cannabinoids THC Negative (Negative); Cocaine Screen,Urine Negative (Negative); METHADONE URINE SCREEN Negative (Negative); OPIATES URINE SCREEN Negative (Negative)
[2023-11-18 11:57] LABS: Tricyclic Antidepressants Negative (Negative)
--- NOTE | 2023-11-18 12:45 | RT.EKG_ITS ---
APPROVED REPORT Exam: Resting ECG Reason for Exam: Repeat Patient Location: E HR:96 bpm ECG Measurements Heart Rate 96 AXIS WY 159 P 44 QRSd 105 QRS 24 QT 359 T 29 QTc 454 Conclusion Sinus rhythm...normal P axis, V-rate 60- 99
[2023-11-18 12:50] LABS: Source Nasopharynx
[2023-11-18 13:32] LABS: COVID-19 PCR Negative (Negative)
[2023-11-18] MEDS: cefTRIAXone 2 GM/50 ML BAG IVPB (13:35)
[2023-11-18 14:07] LABS: Troponin I < 50 ng/L (< or =60)
[2023-11-19 10:14] LABS: Lyme Ab w Rflx to Lyme Confirm Negative (Negative)
[2023-11-21 16:54] LABS: Anaplasma phagocytophilum Negative (Negative); B. miyamotoi PCR Negative (Negative); Babesia divergens/MO-1 Negative (Negative); Babesia duncani Negative (Negative); Babesia microti Negative (Negative); Ehrlichia chaffeensis Negative (Negative); Ehrlichia ewingii/canis Negative (Negative); Ehrlichia muris eauclairensis Negative (Negative)
== END 2023-11-18 15:19 | disposition home or self-care (01) ==
PROVIDERS: Emergency Provider Registered Nurse Emergency; PCP Nurse Practitioner
DX: R50.9 Fever, unspecified (principal); R11.10 Vomiting, unspecified; E83.42 Hypomagnesemia; I10 Essential (primary) hypertension; E11.9 Type 2 diabetes mellitus without complications; E78.5 Hyperlipidemia, unspecified; I71.40 Abdominal aortic aneurysm, without rupture, unspecified; Z79.84 Long term (current) use of oral hypoglycemic drugs; Z79.899 Other long term (current) drug therapy
CPT/HCPCS: 36415; 71275; 80053; 80307; 82962; 87040; 87635; 87798; 93005; 96365; 96367; 99285; 74174; 80320; 80329; 81003; 83605; 83735; 84484; 85025; 85610; 85730; 86618; 93010; 99284; J0131; J0696; J2405; J3475; J3490; Q9967

== ENCOUNTER → 2023-11-27 21:55 | Outpatient (CLI) | payer MEDICAID, SELFPAY ==
--- NOTE | 2023-11-27 14:45 | DI.RAD_ITS ---
Exam(s) XR FOOT LT COMPLETE EXAM: XR FOOT LT COMPLETE CLINICAL HISTORY: r/o osteomylitis M79.672 PAIN LEFT FOOT, PAIN. TECHNIQUE: 2D digital imaging was performed. Three views. COMPARISON: CR,XR XR FOOT LT COMPLETE from 10/14/2022 FINDINGS: BONES: No acute fracture is present. No bony destructive lesion is seen. Plantar calcaneal spurs. JOINTS: No dislocation present. SOFT TISSUE: Edema. No foreign body or gas collection. IMPRESSION: No acute abnormality. DATA REPOSITORY: RADIATION DOSE DELIVERED:
--- NOTE | 2023-11-27 14:45 | DI.US_ITS ---
Exam(s) US LOWER EXTREMITY VENOUS LT EXAM: US LOWER EXTREMITY VENOUS LT CLINICAL HISTORY: r/o dvt M79.605 PAIN LEFT LEG TECHNIQUE: Grayscale, color, and doppler imaging of the deep venous system of the left lower extremi ty was performed. COMPARISON: None FINDINGS: There is no evidence of intraluminal thrombus and there is normal compression and augmentation demons trated within the common femoral vein, femoral vein, and popliteal vein. In the ipsilateral calf the interrogated veins also exhibit normal compression/ augmentation properti es. The ipsilateral saphenofemoral junction is patent. IMPRESSION: 1. No evidence of DVT in the left lower extremity. 2. A few minimally prominent lymph nodes are noted in the left groin. These exhibit normal fatty h anca and do not appear pathologic. Largest of these measures 3.3 x 1.0 x 2.7 cm DATA REPOSITORY:
== END ==
PROVIDERS: PCP Nurse Practitioner; Visit Provider Nurse Practitioner Family
DX: M79.672 Pain in left foot (principal); M77.32 Calcaneal spur, left foot; M79.605 Pain in left leg; R59.0 Localized enlarged lymph nodes
CPT/HCPCS: 73630; 93971

== ENCOUNTER 2023-11-27 21:57 | Outpatient (CLI) | payer MEDICAID, SELFPAY ==
[2023-11-27 16:01] LABS: Abs Immature Grans 0.11 10^3/uL (0.0-0.06); Absolute Basophil Count 0.05 10^3/uL (0.0-0.2); Absolute Eosinophil Count 0.09 10^3/uL (0.0-0.7); Absolute Lymphocyte Count 1.83 10^3/uL (1.2-3.4); Absolute Monocyte Count 0.75 10^3/uL (0.1-0.8); Absolute Neutrophil Count 7.39 10^3/uL (1.2-6.7); Basophils % 0.5 %; Eosinophils % 0.9 %; HCT 42.8 % (40.0-50.0); HGB 14.4 g/dL (13.5-17.5); Immature Grans % 1.1 %; Lymphocytes % 17.9 %; MCH 28.3 pg (27.0-33.0); MCHC 33.6 % (32.0-36.0); MCV 84 fL (80-95); MPV 9.1 fL (8.0-11.0); Monocytes % 7.3 %; Neutrophils % 72.3 %; Platelet Count 203 10^3/uL (130-400); RBC 5.09 10^6/uL (4.36-5.78); RDW 12.8 % (11.8-14.1); RDW-SD 39.2 fL; WBC 10.22 10^3/uL (4.4-10.8)
[2023-11-27 16:04] LABS: ESR 13 mm/hr (0-20)
[2023-11-27 16:45] LABS: D-Dimer 255 ng/mlFEU (<500)
[2023-11-27 17:15] LABS: C-Reactive Protein < 0.50 mg/dL (<or=0.5)
== END 2023-11-27 21:58 | disposition home or self-care (01) ==
LOC: LBO 21:57
PROVIDERS: PCP Nurse Practitioner; Visit Provider Nurse Practitioner Family
DX: M79.672 Pain in left foot (principal); M79.89 Other specified soft tissue disorders; M79.605 Pain in left leg
CPT/HCPCS: 36415; 85652; 84550; 85025; 85379; 86140

== ENCOUNTER → 2023-11-29 11:09 | Outpatient (CLI) | payer MEDICAID, SELFPAY ==
--- NOTE | 2023-11-29 09:30 | DI.RAD_ITS ---
Exam(s) XR ANKLE LT COMPLETE EXAM: XR ANKLE LT COMPLETE CLINICAL HISTORY: leg pain r/o osteomylitis, M79.605, M79.89. TECHNIQUE: 2D digital imaging was performed. COMPARISON: No exams were available for comparison FINDINGS: 3 views No evidence of fracture nor widening of the ankle mortise. Talar dome unremarkable. No osteochondra l defects nor degenerative subarticular cysts evident in the talar dome. Small benign-appearing bone island is noted in the lateral malleolus. On the lateral view there is a 1 mm calcific density seen anteriorly in the tibiotalar-ankle joint sp june, possibly significant. IMPRESSION: Tiny 1 millimeter calcific density seen anteriorly in the tibiotalar joint, possibly representing loo se body. There does not appear to be a prominent ankle joint effusion. Talar dome appears unremarka ble. DATA REPOSITORY: RADIATION DOSE DELIVERED:
--- NOTE | 2023-11-29 09:30 | DI.RAD_ITS ---
Exam(s) XR TIB/FIB LT EXAM: XR TIB/FIB LT CLINICAL HISTORY: r/o osteomylitis, M79.605. TECHNIQUE: 2D digital imaging was performed. COMPARISON: CR XR KNEE LT 3V AP,LAT,AMRIK from 11/29/2023 CR XR ANKLE LT COMPLETE from 11/29/2023 FINDINGS: 3 views No evidence of fracture of the tibia and fibula. There is a E 9 x 6 mm calcific density in the regio n of the distal patellar ligament-anterior tibial tubercle. No prominent overlying soft tissue swell ing seen at this level. No lytic nor blastic osseous lesions. No radiopaque foreign bodies. Some e sunny is noted in the soft tissues of the calf. IMPRESSION: Anterior tibial tubercle finding as above, overlying soft tissue swelling. There appears to be some edema in the soft tissues of the calf. DATA REPOSITORY: RADIATION DOSE DELIVERED:
--- NOTE | 2023-11-29 09:30 | DI.RAD_ITS ---
Exam(s) XR KNEE LT 3V AP,LAT,AMRIK EXAM: XR KNEE LT 3V AP,LAT,AMRIK h CLINICAL HISTORY: r/o osteomylitis, M79.605. TECHNIQUE: 2D digital imaging was performed. COMPARISON: No exams were available for comparison FINDINGS: 3 views No evidence of fracture or prominent joint effusion. Anteriorly there is an enthesophyte versus is s esamoid bone within the distal patellar ligament at the anterior tibial tubercle level There is minimal narrowing of the medial compartment. No osteophytes. No other joint space narrowin g. Bone density normal. No osseous lesions. IMPRESSION: Mild findings as above. DATA REPOSITORY: RADIATION DOSE DELIVERED:
== END ==
PROVIDERS: PCP Nurse Practitioner; Visit Provider Nurse Practitioner Family
DX: M79.605 Pain in left leg (principal); M79.89 Other specified soft tissue disorders
CPT/HCPCS: 73562; 73590; 73610

== ENCOUNTER 2023-12-12 15:23 | Outpatient (CLI) | payer OTHER, SELFPAY ==
[2023-12-12 15:32] LABS: ESR 9 mm/hr (0-20)
[2023-12-12 22:39] LABS: Rheumatoid Factor <8.6 IU/mL (<12.0)
[2023-12-13 08:10] LABS: Cyclic Citrullinated Peptide <2.5 U/mL (<5.0)
[2023-12-13 11:11] LABS: Lyme Ab w Rflx to Lyme Confirm Negative (Negative)
[2023-12-13 16:06] LABS: ANA Interpretation Negative (Negative)
[2023-12-15 00:41] LABS: Anaplasma phagocytophilum Negative (Negative); B. miyamotoi PCR Negative (Negative); Babesia divergens/MO-1 Negative (Negative); Babesia duncani Negative (Negative); Babesia microti Negative (Negative); Ehrlichia chaffeensis Negative (Negative); Ehrlichia ewingii/canis Negative (Negative); Ehrlichia muris eauclairensis Negative (Negative)
== END 2023-12-12 15:24 | disposition home or self-care (01) ==
LOC: LBO 15:28
PROVIDERS: PCP Nurse Practitioner; Visit Provider Family Medicine
DX: R50.9 Fever, unspecified (principal); M25.50 Pain in unspecified joint
CPT/HCPCS: 36415; 85652; 86200; 87798; 86038; 86431; 86618

== ENCOUNTER 2024-03-10 08:00 | Outpatient (CLI) | payer OTHER, SELFPAY ==
--- NOTE | 2024-03-10 08:00 | DI.RAD_ITS ---
Exam(s) XR FOOT RT COMPLETE EXAM: XR FOOT RT COMPLETE CLINICAL HISTORY: Pain in right foot M79.671 PAIN RT FOOT. TECHNIQUE: 2D digital imaging was performed. Three views. COMPARISON: None FINDINGS: BONES: No acute fracture is present. No bony destructive lesion is seen. Spurring at the Achilles in sertion on the calcaneus. Plantar calcaneal spur. JOINTS: No dislocation present. Mild degenerative changes 1st MTP joint. No significant hallux valg us. SOFT TISSUE: Normal. IMPRESSION: Heel spurs. Mild degenerative changes 1st MTP joint. DATA REPOSITORY: RADIATION DOSE DELIVERED:
--- NOTE | 2024-03-10 08:00 | DI.RAD_ITS ---
Exam(s) XR FOOT LT COMPLETE EXAM: XR FOOT LT COMPLETE CLINICAL HISTORY: Achilles tendinitis M79.672 PAIN LEFT FOOT. TECHNIQUE: 2D digital imaging was performed. Three views. COMPARISON: CR XR FOOT LT COMPLETE from 11/27/2023 FINDINGS: BONES: No acute fracture is present. No bony destructive lesion is seen. Heel spurs again noted. JOINTS: No dislocation present. Minimal degenerative changes. SOFT TISSUE: Normal. IMPRESSION: heel spurs. DATA REPOSITORY: RADIATION DOSE DELIVERED:
== END 2024-03-10 08:20 ==
LOC: DI 03-11 09:03
PROVIDERS: PCP Nurse Practitioner; Visit Provider Podiatrist
DX: M77.32 Calcaneal spur, left foot (principal); M77.31 Calcaneal spur, right foot
CPT/HCPCS: 73630

== ENCOUNTER 2024-04-02 22:24 | Emergency (ER) | payer OTHER, MEDICAID, SELFPAY ==
--- NOTE | 2024-04-02 22:28 | ED.GENADUL_ITS ---
Discharge Plan Disposition Patient Disposition: Home Condition: Good Discharge Details Clinical Impression: Gross hematuria Primary Care Provider: Tammy Costello ED Provider: Melchor Floyd [place] Meds and New Rx's Prescriptions: Continued atorvastatin 40 mg tablet 40 mg PO QPM Qty: 90 3RF cholecalciferol (vitamin D3) 1,250 mcg (50,000 unit) capsule 1,250 mcg PO QWEEK Qty: 12 3RF losartan 25 mg tablet 25 mg PO DAILY Qty: 90 3RF Discharge Instructions Instructions: Blood in Urine (Hematuria), Adult ED Additional Instructions: You were seen for blood with clots in your urine. Your exam, labs, CT scan are reassuring. There is a stone within the left kidney otherwise an unremarkable CT scan. Typically, stones in the kidney themselves are not a problem. Please follow-up with primary care and potentially urology for further evaluation. You should return to the ED for inability to urinate, fever, back or abdominal pain, persistent vomiting, other concerns. Referrals: [facility] [Provider Group] Tammy Costello, RONALD [Primary Care Provider] - HPI General Mode of arrival: ambulatory . Date/Time Provider Initiated Documentation: 04/02/24 22:25 . Limitations to Documentation: no limitations . Information obtained by: patient, RN notes reviewed and old records reviewed . HPI Narrative: Patient presenting to ED with onset of gross hematuria with clots about 3 hours ago. He is not having any difficulty passing urine. He has some mild left- sided back and abdominal discomfort but does not really describe it as pain. He otherwise feels well and denies fever, nausea, vomiting, lightheadedness, chest pain, shortness of breath. He has never had issues like this previously. He is not on anticoagulation. Related Data Home Medications ?Medication ?Instructions ?Recorded ?Confirmed cholecalciferol (vitamin D3) 1,250 1,250 mcg PO QWEEK #12 caps 12/03/23 04/02/24 mcg (50,000 unit) capsule losartan 25 mg tablet 25 mg PO DAILY #90 tabs 12/03/23 04/02/24 atorvastatin 40 mg tablet 40 mg PO QPM #90 tabs 02/11/24 04/02/24 Previous Rx's ?Medication ?Instructions ?Recorded cholecalciferol (vitamin D3) 1,250 1,250 mcg PO QWEEK #12 caps 12/03/23 mcg (50,000 unit) capsule losartan 25 mg tablet 25 mg PO DAILY #90 tabs 12/03/23 atorvastatin 40 mg tablet 40 mg PO QPM #90 tabs 02/11/24 Allergies Allergy/AdvReac Type Severity Reaction Status Date / Time buprenorphine (From Buprenex) Allergy unknown Verified 04/02/24 22:32 Iodine and Iodide Containing AdvReac Mild Nausea Verified 04/02/24 22:32 Produc General BEATRICE: 3 Review of Systems Narrative: per HPI Exam Narrative Exam Narrative: Const: Obese male in NAD. VS per triage. HEENT: NC/AT. Normal facial exam. Neck: Supple. Trachea midline. Lungs: Normal respiratory effort. GI: Soft/ND/NT. Back: No CVAT. Neuro: A+O x 3. Normal speech, mentation, gait. Cranial nerves II - XII grossly intact. No gross motor or sensory deficit. Ext: No C/C/E. Medical Decision Making Patient presenting to ED with onset of gross hematuria 3 hours ago. Describes a little bit of left-sided discomfort but not really pain. He is not on anticoagulation. He has no other symptoms. Bladder scan reveals about 130 mL in the bladder currently. He denies any difficulty urinating. Will plan UA, CBC and BMP, CT of abdomen pelvis with IV contrast. Patient's laboratory studies unremarkable with a normal white count, hemoglobin, kidney function. Glucose a little high at 214. Urinalysis with blood but no evidence of infection. CT scan of the abdomen pelvis with IV contrast with no acute process. He does have a nonobstructive stone in the left kidney. Discussed findings with patient. Will discharge home to follow up with PCP, potentially with urology given new gross hematuria. Return precautions provided. Medical Records Medical records reviewed: Yes I reviewed the patient's medical records. Medical records narrative: outpatient notes Lab Data Lab results reviewed: Yes I reviewed the patient's lab results. PFSH All Active Problems (Updated 04/03/24 @ 00:30 by Melchor Floyd MD) Gross hematuria (Acute) Snoring (Acute) 02/08/23 Sleep Clinic Consult, PSG planned Venous insufficiency (Acute) Contracture of left Achilles tendon (Acute) Achilles tendinitis of left lower extremity (Acute) Pain in right foot (Acute) Gout (Chronic) Leg pain, left (Acute) Foot pain, left (Acute) Left leg swelling (Acute) Vestibular dysfunction of right ear (Acute) Frequent headaches (Acute) Tubulovillous adenoma (Acute) Post-nasal drip (Acute) Tinnitus of right ear (Acute) Asymmetrical sensorineural hearing loss (Acute) Hypertriglyceridemia (Acute) Intra-abdominal adhesions (Chronic) [place] [facility] [place] will likely eventually need a complex revision in the future Medical History Diabetes mellitus Abnormality of right ventricle of heart (~10/2022) 10/12/22 Cardiology Morbid obesity with BMI of 45.0-49.9, adult PITER (obstructive sleep apnea) (~10/2022) 02/13/23 sleep study, F/U with Sleep Clinic on 05/31/23 and CPAP ordered on 05/24/23. Aneurysm of the ascending aorta, without rupture (~10/2022) 10/12/22 Cardiology Mixed hyperlipidemia (~10/2022) 10/12/22 Cardiology Meckels diverticulum 05/1993: [facility]. Dr. Anderson Surgical History History of cholecystectomy 2006? 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, [employer] Sexually active: Yes Do you think of yourself as: straight/heterosexual Current gender identity: male What is your relationship status?: How often do you talk on the phone with friends or family?: three or more times per week How often do you get together with friends or relatives?: three or more times per week Do you belong to any clubs or organized social groups?: no Panel score (0-1 are the most socially isolated patients): 2 What type of physical activity do you participate in: none Nataly/Evangelical: Latter-Day Special nataly needs: No Seatbelt use: sometimes Helmet use: No Drive intox or ride w/intox dairy truck driver: No Working smoke detector in home: Yes Fire extinguisher in home: Yes Carbon monox detector in home: Yes Do you feel safe at home: Yes Do you feel safe in your relationship?: Yes
[2024-04-02 22:29] VITALS: BP 164/102; PULSE 86; RESP 18; O2SAT 98
--- NOTE | 2024-04-02 22:30 | DI.CT_ITS ---
Exam(s) CT ABDOMEN PELVIS W EXAM: CT ABDOMEN PELVIS W CLINICAL HISTORY: new gross hematuria; mild L sided back/abd pain. TECHNIQUE: Imaging Protocol: Axial computed tomography images with coronal and sagittal reformatted images were created and reviewed CONTRAST MATERIAL: Intravenous: Omnipaque-350 100cc Oral: None COMPARISON: CT CT THORAX ABD/PEL CTA from 11/18/2023 FINDINGS: VISUALIZED LUNG BASES: No nodules nor pleural effusions evident. ABDOMEN: There is no ascites. LIVER: Mild hepatic steatosis. No discrete focal hepatic lesions evident. No dilated intrahepatic d ucts. GALLBLADDER/BILIARY: The gallbladder is again noted be surgically absent. CBD is not dilated. PANCREAS: No evidence of pancreatic mass nor dilatation of the pancreatic duct. SPLEEN: Spleen is not enlarged. No obvious intrasplenic lesions. Splenic and portal veins are paten t. ADRENALS: There are no significant adrenal masses. KIDNEYS:There is a solitary nonobstructive calculus in the lower pole calyx of the left kidney measur ing 3 mm. There are no calculi in the nondistended ureters. No calculi in the opposite-right kidney . No solid renal masses. No significant cysts. ABDOMINAL AORTA: Abdominal aorta is not enlarged. LYMPH NODES:There is no retroperitoneal nor paraaortic adenopathy. ABDOMINAL WALL: Fat only containing left inguinal hernia noted. GI: There is a small bowel anastomosis in the right-side of the abdomen. There is no evidence of bow el obstruction, free air, nor abscess. The colon is collapsed at and below the splenic flexure to the mid sigmoid level. PELVIS: GI: No evidence of appendicitis.Sigmoid is redundant. No diverticulitis. LYMPH NODES: There is no intrapelvic nor inguinal adenopathy. REPRODUCTIVE: Mildly enlarged prostate. URINARY BLADDER: Mildly is mildly distended. No masses nor calculi in the lumen. Pelvic ureters are not dilated. OSSEOUS: No fractures and no significant osseous lesions. IMPRESSION: 1. There is a solitary 3-4 mm nonobstructive calculus in lower pole calyx of the left kidney. No oth er renal findings. No hydronephrosis. 2. Previous cholecystectomy and there is also a small bowel anastomosis in the right-side of the abdo men. No evidence of bowel obstruction, free air, nor abscess. 3. Other findings as above. RADIATION DOSE DELIVERED: 1,455.36mGy.cm Total DLP DATA REPOSITORY: All CT scans at this facility are submitted to the National Radiology Data Registry (NRDR) Dose Index Registry (DIR) with the [employer] (ACR). RADIATION OPTIMIZATION: All CT scans at this facility use at least one of these dose optimization te chniques: automated exposure control; mA and/or kV adjustment per patient size (includes targeted exa ms where dose is matched to clinical indication); or iterative reconstruction.
[2024-04-02 22:52] LABS: Bilirubin Negative (Negative); Blood Moderate (Negative); Clarity Clear (Clear); Glucose Negative (Negative); Ketones Negative (Negative); Leukocyte Esterase Negative (Negative); Nitrite Negative (Negative); Specific Gravity <= 1.005 (1.005-1.025); Urobilinogen 0.2 mg/dL (Up to 0.2)
[2024-04-02] MEDS: Ondansetron 4 MG/2 ML VIAL IVP (22:54)
[2024-04-02 22:58] LABS: Abs Immature Grans 0.02 10^3/uL (0.0-0.06); Absolute Basophil Count 0.05 10^3/uL (0.0-0.2); Absolute Eosinophil Count 0.14 10^3/uL (0.0-0.7); Absolute Lymphocyte Count 2.23 10^3/uL (1.2-3.4); Absolute Monocyte Count 0.52 10^3/uL (0.1-0.8); Absolute Neutrophil Count 5.99 10^3/uL (1.2-6.7); Basophils % 0.6 %; Eosinophils % 1.6 %; HCT 44.2 % (40.0-50.0); HGB 14.8 g/dL (13.5-17.5); Immature Grans % 0.2 %; Lymphocytes % 24.9 %; MCHC 33.5 % (32.0-36.0); MCV 84 fL (80-95); MPV 9.4 fL (8.0-11.0); Monocytes % 5.8 %; Neutrophils % 66.9 %; Platelet Count 168 10^3/uL (130-400); RBC 5.29 10^6/uL (4.36-5.78); RDW 12.2 % (11.8-14.1); RDW-SD 37.3 fL; WBC 8.95 10^3/uL (4.4-10.8)
[2024-04-02 23:01] LABS: Anion Gap 10.9 mmol/L (3-11); BUN 13 mg/dL (7-18); CO2 27.1 mmol/L (21.0-32.0); CREATININE 1.1 mg/dL (0.70-1.30); Calcium 9.2 mg/dL (8.5-10.1); Chloride 102 mmol/L (98-107); Estimated GFR 79.28 (mL/min/1.73m2); Glucose 214 mg/dL (74-106); Potassium 3.7 mmol/L (3.5-5.1); Sodium 140 mmol/L (136-145)
[2024-04-02] MEDS: Normal Saline - Diluent 50 ML VIAL IJ (23:04)
[2024-04-02] MEDS: Omnipaque 350 MG/ML 100 ML BTL IJ (23:05)
[2024-04-02 23:10] LABS: Bacteria Rare HPF (Negative); C & S Indicated? No; Epithelial Cells Negative HPF (Negative); RBC 0-2 HPF (0-2); WBC Negative HPF (0-5)
[2024-04-02 23:59] VITALS: O2SAT 99
[2024-04-03] VITALS: BP 144/94; PULSE 85; RESP 16
--- NOTE | 2024-04-03 00:24 | DI.VRAD_ITS ---
PROCEDURE INFORMATION: Exam: CT Abdomen And Pelvis With Contrast Exam date and time: 04/02/2024 11:03 PM Age: 54 years old Clinical indication: Other: New gross hematuria; Mild L sided back/abd pain TECHNIQUE: Imaging protocol: Computed tomography of the abdomen and pelvis with contrast. Contrast material: OMNIPAQUE 350; Contrast volume: 100 ml; Contrast route: INTRAVENOUS (IV); COMPARISON: CT THORAX ABD/PEL CTA 11/18/2023 10:37 AM FINDINGS: Liver: Normal. No mass. Gallbladder and biliary ducts: Cholecystectomy. No biliary ductal dilatation. Pancreas: Unremarkable. Spleen: Normal. Adrenal glands: Normal. No mass. Kidneys and ureters: Nonobstructive nephrolithiasis left kidney. No ureteral stones. No obstructive uropathy. Stomach and bowel: Chronic postsurgical changes of the bowel. Appendix: Normal appendix. Intraperitoneal space: Unremarkable. No pneumoperitoneum. No abscess. Vasculature: Unremarkable. Lymph nodes: Unremarkable. Urinary bladder: Unremarkable as visualized. Reproductive: Prostatomegaly. Bones/joints: Unremarkable. No acute fracture. Soft tissues: Left inguinal hernia containing fat only. IMPRESSION: No acute findings. Dictated and Authenticated by: Matthieu Martin MD. Ordering:SUSY Roche MD
[2024-04-03 00:43] VITALS: BP 142/90; PULSE 83; RESP 16; O2SAT 99
== END 2024-04-03 00:44 | disposition home or self-care (01) ==
PROVIDERS: Emergency Provider Emergency Medicine; PCP Nurse Practitioner
DX: R31.0 Gross hematuria; N20.0 Calculus of kidney; K40.90 Unilateral inguinal hernia, without obstruction or gangrene, not specified as recurrent; Z79.899 Other long term (current) drug therapy; E78.1 Pure hyperglyceridemia
CPT/HCPCS: 36415; 80048; 96374; 99285; 74177; 81003; 81015; 85025; 99284; J2405; J3490

== ENCOUNTER 2024-04-14 12:35 | Outpatient (CLI) | payer OTHER, MEDICAID, SELFPAY ==
[2024-04-15 10:05] LABS: PSA, Screening 1.2 ng/mL (<=3.5)
== END 2024-04-14 12:36 | disposition home or self-care (01) ==
LOC: LBO 12:36
PROVIDERS: PCP Nurse Practitioner; Visit Provider Nurse Practitioner Gerontology
DX: R39.9 Unspecified symptoms and signs involving the genitourinary system (principal); R31.0 Gross hematuria
CPT/HCPCS: 36415; 84153

== ENCOUNTER 2024-04-27 06:10 | Day surgery (SDC) | payer OTHER, MEDICAID, SELFPAY ==
[2024-04-27] VITALS (10 sets, daily range): BP systolic 104–138; BP diastolic 70–98; PULSE 62–85; RESP 13–21; TEMP 36.1–36.6; O2SAT 94–98; BMI 46.1
[2024-04-27] MEDS: Normal Saline 500 ML 30 ML IV (06:50)
--- NOTE | 2024-04-27 07:00 | HPE_ITS ---
Date of service: 04/27/24 Time of Service: 07:00 Assessment and Plan Assessment and plan (1) Gross hematuria: Status: Acute Assessment and plan: We will complete his hematuria workup with cystoscopy and bilateral retrograde pyelogram. We will be prepared to resect any visible bladder tumor that is identified. History of Present Illness History of Present Illness Chief Complaint: Gross hematuria Narrative: This is a 54-year-old gentleman who presented to the emergency department with gross hematuria and clots. He only saw gross hematuria on the day of his emergency department presentation. He has not seen any hematuria since then. He was evaluated with a CT scan with IV contrast. No renal masses are seen but there is a small stone in the lower pole of the left kidney. He presents for cystoscopy and possible transurethral resection of any visible bladder tumor. He is not on any anticoagulants Review of Systems Narrative: No fevers or chills Decreased hearing acuity. No vision change or dysphasia No diabetes or thyroid dysfunction Sleep apnea/snoring. No shortness of breath, cough or hemoptysis No chest pain or palpitations No nausea, vomiting, hepatitis, ulcers, jaundice No seizures, strokes or peripheral neuropathy No bleeding disorders or anemia Hx gout PFSH All Active Problems Gross hematuria (Acute) Venous insufficiency (Acute) Contracture of left Achilles tendon (Acute) Achilles tendinitis of left lower extremity (Acute) Pain in right foot (Acute) Gout (Chronic) Leg pain, left (Acute) Foot pain, left (Acute) Left leg swelling (Acute) Vestibular dysfunction of right ear (Acute) Snoring (Acute) 02/08/23 Sleep Clinic Consult, PSG planned Frequent headaches (Acute) Tubulovillous adenoma (Acute) Post-nasal drip (Acute) Tinnitus of right ear (Acute) Asymmetrical sensorineural hearing loss (Acute) Hypertriglyceridemia (Acute) Intra-abdominal adhesions (Chronic) Counseled at [facility] [place] that he will likely eventually need a complex revision in the future Medical History Intestinal adhesions Diabetes mellitus Abnormality of right ventricle of heart (~10/2022) 10/12/22 Cardiology Morbid obesity with BMI of 45.0-49.9, adult PITER (obstructive sleep apnea) (~10/2022) 02/13/23 sleep study, F/U with Sleep Clinic on 05/31/23 and CPAP ordered on 05/24/23. Aneurysm of the ascending aorta, without rupture (~10/2022) 10/12/22 Cardiology Mixed hyperlipidemia (~10/2022) 10/12/22 Cardiology Meckels diverticulum 05/1993: [facility]. Dr. Anderson Surgical History History of partial colectomy 8 per pt. History of cholecystectomy 2005? 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, [employer] Sexually active: Yes Do you think of yourself as: straight/heterosexual Current gender identity: male What is your relationship status?: How often do you talk on the phone with friends or family?: three or more times per week How often do you get together with friends or relatives?: three or more times per week Do you belong to any clubs or organized social groups?: no Panel score (0-1 are the most socially isolated patients): 2 What type of physical activity do you participate in: none Nataly/Mu-Ism: Mandaeism Special nataly needs: No Seatbelt use: sometimes Helmet use: No Drive intox or ride w/intox driver/refuse collector: No Working smoke detector in home: Yes Fire extinguisher in home: Yes Carbon monox detector in home: Yes Do you feel safe at home: Yes Do you feel safe in your relationship?: Yes Meds Allergies and Home Medications Allergies Allergy/AdvReac Type Severity Reaction Status Date / Time buprenorphine (From Buprenex) Allergy Severe Other (See Verified 04/27/24 06:26 Comment) Iodine and Iodide Containing AdvReac Mild Nausea Verified 04/27/24 06:26 Produc Home Medications ?Medication ?Instructions ?Recorded ?Confirmed ?Type cholecalciferol (vitamin D3) 1,250 1,250 mcg PO QWEEK #12 caps 12/03/23 04/27/24 Rx mcg (50,000 unit) capsule losartan 25 mg tablet 25 mg PO DAILY #90 tabs 12/03/23 04/27/24 Rx atorvastatin 40 mg tablet 40 mg PO QPM #90 tabs 02/11/24 04/27/24 Rx Exam Const General: cooperative Nutritional Appearance: obese Neck Neck: supple Resp Effort & Inspection: normal respiratory effort Auscultation: clear to auscultation bilaterally Cardio Rate: regular rate Rhythm: regular rhythm GI Palpation: soft and no masses Neuro General: patient alert, patient awake and patient oriented x3 Results Last Vital Signs Temp 36.6 C 04/27/24 06:20 Pulse 69 04/27/24 06:20 Resp 17 04/27/24 06:20 BP 135/82 04/27/24 06:20 Pulse Ox 98 04/27/24 06:20 Time Spent Time spent with Patient: <40 minutes Time was spent: other
--- NOTE | 2024-04-27 07:09 | ANES.PREOP_ITS ---
General Info Date of Service Date Performed: 04/27/24 Height: 5 ft 8 in Weight: 137.7 kg Body Mass Index (BMI): 46.1 Surgical Procedure: Operation Date: 04/27/24 07:40 Proposed Procedure Side Surgeon p Cysto/Retrograde/Possible Transurethral Resection Bladder Tumor Ventura Casillas MD Meds Allergies and Home Medications Allergies Allergy/AdvReac Type Severity Reaction Status Date / Time buprenorphine (From Buprenex) Allergy Severe Other (See Verified 04/27/24 06:26 Comment) Iodine and Iodide Containing AdvReac Mild Nausea Verified 04/27/24 06:26 Produc Home Medication ?Medication ?Instructions ?Recorded cholecalciferol (vitamin D3) 1,250 1,250 mcg PO QWEEK #12 caps 12/03/23 mcg (50,000 unit) capsule losartan 25 mg tablet 25 mg PO DAILY #90 tabs 12/03/23 atorvastatin 40 mg tablet 40 mg PO QPM #90 tabs 02/11/24 Current Visit Medications: Current Medications Generic Name Dose Route Start Last Admin Trade Name Freq PRN Reason Stop Dose Admin Cefazolin Sodium/Dextrose 2 gm in 50 mls @ 100 mls/hr 04/27/24 06:00 Ancef Duplex IVPB 04/27/24 23:59 PREOP ARTIE Sodium Chloride 500 mls @ 30 mls/hr 04/27/24 06:15 Saline 500ml Bag IV 05/27/24 06:14 INFUSION ARTIE IV Miscellaneous Supplies 1 each 04/27/24 06:00 Iv Access IV 04/27/24 23:59 DIRECTED ARTIE Sodium Chloride 0 ml 04/27/24 06:00 Normal Saline Flush 10 Ml Syr IV 04/27/24 23:59 PRN PRN Sodium Chloride 0 ml 04/27/24 06:00 Normal Saline 10 Ml Vial IJ 04/27/24 23:59 DIRECTED PRN Sterile Water 0 ml 04/27/24 06:00 Water,Injection,Sterile 10 Ml Vial IJ 04/27/24 23:59 DIRECTED PRN PFSH Active Problems Active Problems: Problem Status Onset Code Gross hematuria Acute R31.0 Venous insufficiency Acute I87.2 Contracture of left Achilles tendon Acute M67.02 Achilles tendinitis of left lower extremity Acute M76.62 Pain in right foot Acute M79.671 Gout Chronic M10.9 Leg pain, left Acute M79.605 Foot pain, left Acute M79.672 Left leg swelling Acute M79.89 Vestibular dysfunction of right ear Acute H81.91 Snoring Acute R06.83 Frequent headaches Acute R51.9 Tubulovillous adenoma Acute D36.9 Post-nasal drip Acute R09.82 Tinnitus of right ear Acute H93.11 Asymmetrical sensorineural hearing loss Acute H90.3 Hypertriglyceridemia Acute E78.1 Intra-abdominal adhesions Chronic K66.0 Medical History Medical History Intestinal adhesions Diabetes mellitus Abnormality of right ventricle of heart (~10/2022) 10/12/22 Cardiology Morbid obesity with BMI of 45.0-49.9, adult PITER (obstructive sleep apnea) (~10/2022) 02/13/23 sleep study, F/U with Sleep Clinic on 05/31/23 and CPAP ordered on 05/24/23. Aneurysm of the ascending aorta, without rupture (~10/2022) 10/12/22 Cardiology Mixed hyperlipidemia (~10/2022) 10/12/22 Cardiology Meckels diverticulum 05/1993: [facility]. Dr. Anderson Surgical History Surgical History History of partial colectomy 8 per pt. History of cholecystectomy 2005? [place], [place] Tobacco Smoking/Tobacco Use Status: Never Alcohol Alcohol Intake: current Alcohol intake frequency: holidays/special occasions only Alcohol type: beer Substance Use Substance use: Never Substance use type: does not use Vital Signs and Lab Results Vital Signs Most Recent Vital Signs in EMR: Most Recent Vital Signs Temp Pulse Resp BP Pulse Ox 36.6 C 69 17 135/82 98 04/27/24 06:20 04/27/24 06:20 04/27/24 06:20 04/27/24 06:20 04/27/24 06:20 Lab Results Blood Type / Crossmatch: No Data to Display Complete Blood Count: White Blood Count 8.95 10^3/uL (4.4-10.8) 04/02/24 22:45 Red Blood Count 5.29 10^6/uL (4.36-5.78) 04/02/24 22:45 Hemoglobin 14.8 g/dL (13.5-17.5) 04/02/24 22:45 Hematocrit 44.2 % (40.0-50.0) 04/02/24 22:45 Platelet Count 168 10^3/uL (130-400) 04/02/24 22:45 Complete Metabolic Panel: Sodium 140 mmol/L (136-145) 04/02/24 22:45 Potassium 3.7 mmol/L (3.5-5.1) 04/02/24 22:45 Chloride 102 mmol/L (98-107) 04/02/24 22:45 Carbon Dioxide 27.1 mmol/L (21.0-32.0) 04/02/24 22:45 BUN 13 mg/dL (7-18) 04/02/24 22:45 Creatinine 1.1 mg/dL (0.70-1.30) 04/02/24 22:45 Est GFR (CKD-EPI 2020) 79.28 (mL/min/1.73m2) 04/02/24 22:45 Calcium 9.2 mg/dL (8.5-10.1) 04/02/24 22:45 Glucose 214 mg/dL (74-106) H 04/02/24 22:45 Liver Function Panel: No Data to Display Coagulation Panel: No Data to Display Cardiac Panel: No Data to Display Arterial Blood Gas: No Data to Display Venous Blood Gas: No Data to Display Pancreas Panel: No Data to Display Thyroid Panel: No Data to Display Infectious Disease: No Data to Display Blood Cultures: No Data to Display Toxicology Panel: No Data to Display Imaging and Studies Imaging and Studies Study information below may be from another EMR and interpreted by another provider. Please see original notes in EMR for more complete details. EKG Summary: EKG PATIENT NAME: Juan Larios UNIT #: [id number] ORDERING PROVIDER: Adelaida Gonzales NP PRIMARY CARE PROVIDER: MIRI JACK NP DATE/TIME OF SERVICE: 11/18/23 1302 : 1970 PERFORMING LOCATION: ER APPROVED REPORT Exam: Resting ECG Reason for Exam: Repeat Patient Location: E HR:96 bpm ECG Measurements Heart Rate 96 AXIS DC 159 P 44 QRSd 105 QRS 24 QT 359 T29 QTc 454 Conclusion Sinus rhythm...normal P axis, V-rate 60- 99 <Electronically signed by OWEN LIM MD in OV> E-Sign Date: 11/18/23 E-Sign Time: 1758 ADDENDUM APPROVED REPORT Exam: Resting ECG Reason for Exam: Repeat Patient Location: E HR:96 bpm ECG Measurements Heart Rate 96 AXIS DC 159 P 44 QRSd 105 QRS 24 QT 359 T29 QTc 454 Conclusion Sinus rhythm...normal P axis, V-rate 60- 99 I have reviewed and I agree with the emergency room physician's ECG interpretation. Electronically signed by: <Electronically signed by Mariam Davila M.D. in OV> 11/19/23 0811 Cosigned by: Anesthesia Assessment and Plan Anesthesia History Personal History: No History of Anesthesia Complications Family History: No Family History of Anesthesia Complications Exercise Tolerance Exercise Tolerance: Metabolic Equivalents>4 Pertinent Negatives Pertinent Negatives: No Symptoms of GERD, No Major Pulmonary Symptoms or Complaints and No History of CVA/TIA Cardiac & Pulmonary Exam Cardiac Exam: Normal S1/S2 Heart Sounds Pulmonary Exam: Clear Bilateral Breath Sounds Implantable Cardiac Device Does patient have a Pacemaker or an ICD?: No Airway Exam Known Difficult Airway: No Mallampati Class: 3 Mouth Opening: Normal (> 3cm) Thyromental Distance: Greater than 3 cm Facial Hair: Full Pel[place]o Neck Range of Motion: Limited ROM (slight limitation) Neck Circumference: Normal Teeth Condition: Normal Dentition ASA Classification ASA Score: ASA 3 Emergency Case?: No NPO Status NPO Status: NPO Clears >2 hours, Solids >8 hours Anesthesia Plan Resuscitation Status: Full Code Anesthesia Technique: General Anesthesia Airway Planned: Natural Airway Monitors Used: Standard Monitors Preoperative Comments:: Patient reports cardiac episodesx2 ...I've twice... one around 24 yo and one around 34 yo. Patient reports cold, clammy, sweats, unresponsive epidsodes. Has had extensive workups and does not have an answer. Patient is under surveillance for AAA and is on a yearly visit cycle with [facility] [place] [place]. Last 4.1 cm. Right ventricular hypertrophy with PITER.
[2024-04-27] MEDS: ceFAZolin 2 GM/50 ML BAG IVPB (07:45)
[2024-04-27] MEDS: Lidocaine 2% Jelly 6 ML SYR (07:54)
[2024-04-27] MEDS: Omnipaque 300 MG/ML 50 ML BTL (07:59)
--- NOTE | 2024-04-27 08:14 | W.PM.DSUDISC ---
Date of service: 04/27/24 Discharge Plan Disposition Patient Disposition: Home Condition: Stable Discharge Details Attending Provider: Ventura Casillas Primary Care Provider: Tammy Costello Home Meds and New Rx's Prescriptions: No Action atorvastatin 40 mg tablet 40 mg PO QPM Qty: 90 3RF cholecalciferol (vitamin D3) 1,250 mcg (50,000 unit) capsule 1,250 mcg PO QWEEK Qty: 12 3RF losartan 25 mg tablet 25 mg PO DAILY Qty: 90 3RF Discharge Instructions Additional Instructions: followup 1 year for urinalysis (can be done with PCP or with our office) call if gross hematuria reoccurs before next year's visit Stand Alone Forms: Anesthesia Discharge Inst., [facility] ([facility]) Activity:: Activity as Tolerated Shower/Bathe:: 24 hours Diet:: As Tolerated Discharge Orders Discharge Orders: Discharge Order (Routine); Ordered 04/27/24 Ordered By: Ventura Casillas DS: Diagnosis Discharge Diagnosis (1) Gross hematuria: Status: Acute
--- NOTE | 2024-04-27 08:18 | W.PM.OP ---
Operative Note Operative Note PRE-OP DIAGNOSIS: Gross hematuria POST-OP DIAGNOSIS: same PROCEDURE: Cystoscopy, bilateral retrograde pyelogram SURGEON: Ventura Casillas ANESTHESIA TYPE: Local By Surgeon and General LMA/ETT Refer to Anesthesia Record ESTIMATED BLOOD LOSS: 5 PATHOLOGY: none sent COMPLICATIONS: None Patient was transported to: PACU Patient's condition: stable Implants: None Indications: This is a 54-year-old gentleman who developed gross painless hematuria and was seen in the emergency department. He had no sign of urinary tract infection. He was evaluated with a CT scan with contrast and no solid renal masses were identified. There was a very small stone in the lower pole of the left kidney. He presents now for cystoscopy and bilateral retrograde pyelogram to complete his hematuria workup Findings: Enlarged vascular prostate No papillary or nodular bladder masses No filling defects in the ureters Procedure Description: The patient was given IV antibiotics and brought to the operating on 04/27/2024. After successful induction of general anesthesia without intubation, the patient was placed in the dorsal lithotomy position. His genitalia was prepped and draped. 2% Xylocaine jelly was instilled into the urethra to act as a local anesthetic. The 22 Colombian rigid cystoscope was passed through the urethra into the bladder. The urethra and bladder were inspected with the 30 degree lens. The pendulous, bulbar and membranous urethra appeared normal with no strictures. The prostatic urethra showed trilobar enlargement with prominent vascular lateral lobes and a very small median lobe of the prostate. No active bleeding was seen from the prostatic fossa. The bladder neck was entered and the bladder mucosa was inspected. Both ureteral orifices appeared normal with no blood coming from either side. I attempted to cannulate the ureteral orifices directly with a 5 Colombian access catheter, but I was not successful. On each side, I intubated the ureteral orifice with a guidewire and advanced the access catheter over the wire. The wire was then removed and retrograde pyelograms were performed by injecting Omnipaque through the access catheter under fluoroscopic guidance. No persistent filling defects were seen on either side. Both collecting systems and ureters drained promptly on 5-minute drainage films. The remainder the bladder was inspected using both a 30 and a 70 degree lens. No papillary or nodular lesions were seen within the bladder. No ulcerations or erythematous patches of mucosa were identified. The bladder was emptied and the cystoscope was withdrawn. Based on today's examination I find no evidence of bladder or upper tract pathology. The most likely source of his hematuria is an enlarged vascular prostate. If the hematuria recurs, he would be a candidate for a 5 alpha reductase inhibitor to decrease the prostate size and vascularity. The patient tolerated the procedure well. He was taken to the PACU in stable condition. Date of Procedure: 04/27/24
--- NOTE | 2024-04-27 08:25 | DI.RAD_ITS ---
Exam(s) XR RETROGRADE IN OR EXAM: XR RETROGRADE IN OR CLINICAL HISTORY: GROSS HEMATURIA TECHNIQUE: 2D and realtime digital imaging was performed. CONTRAST MATERIAL: Refer to procedure report. COMPARISON: CT CT ABDOMEN PELVIS W from 04/02/2024 FINDINGS: Fluoroscopy was provided for Dr. Casillas during the performance of a retrograde evaluation of the harinder l collecting system. Please refer to the procedure report for complete details. Ka,r=14.1 mGy IMPRESSION: RADIATION DOSE DELIVERED: 0.0 0.0 0
[2024-04-27] MEDS: Phenazopyridine 200 MG TAB PO (08:54)
--- NOTE | 2024-04-27 09:27 | W.ANESPOSTOP ---
Postoperative Evaluation Date, Time and Location Date Performed: 04/27/24 Time Performed: 09:29 Patient Location: Day Surgery Unit Vital Signs Most Recent Imported Vital Signs: Most Recent Vital Signs Temp Pulse Resp BP Pulse Ox 36.1 C L 69 16 110/98 H 94 04/27/24 08:43 04/27/24 08:43 04/27/24 08:43 04/27/24 08:43 04/27/24 08:43 Pain Score Most Recent Pain Score: Most Recent Pain Score Pain Level 0 04/27/24 08:43 Assessment Mental Status: Awake (Alert & Oriented to Patient Baseline) Airway and Respiratory Function: Patent airway with normal (patient baseline) respiratory exam Cardiovascular Function: Hemodynamically Stable Hydration Status: Adequately Hydrated Nausea & Vomiting: No Nausea or Vomiting Pain: Pt. Denies Any Pain Peripheral Nerve Block: Patient did not receive a nerve block
== END 2024-04-27 09:41 | disposition home or self-care (01) ==
PROVIDERS: PCP Nurse Practitioner; Visit Provider Urology
PROC: 0TBB8ZZ Excision of Bladder, Via Natural or Artificial Opening Endoscopic (ICD-10-PCS; CPT 52005; principal; 2024-04-27 07:30)
DX: R31.0 Gross hematuria (principal); N20.0 Calculus of kidney; I87.2 Venous insufficiency (chronic) (peripheral); E78.1 Pure hyperglyceridemia; E11.9 Type 2 diabetes mellitus without complications; E66.01 Morbid (severe) obesity due to excess calories; G47.33 Obstructive sleep apnea (adult) (pediatric); Z68.42 Body mass index [BMI] 45.0-49.9, adult
CPT/HCPCS: 52005; 74420; J0131; J0690; J2704; Q9967

== ENCOUNTER 2024-08-31 09:50 | Emergency (ER) | payer OTHER, MEDICAID, SELFPAY ==
[2024-08-31 09:56] VITALS: BP 174/105; PULSE 71; RESP 12; TEMP 37.1; O2SAT 98
--- NOTE | 2024-08-31 10:11 | ED.GENADUL_ITS ---
Discharge Plan Disposition Patient Disposition: Home Condition: Stable Discharge Details Clinical Impression: Bilateral knee effusions Primary Care Provider: Tammy Costello ED Provider: Adelaida Gonzales Home Meds and New Rx's Prescriptions: New tramadol 50 mg tablet 50 mg PO BID PRN (Reason: pain) Qty: 10 0RF Rx Instructions: Take one tablet by mouth twice daily as needed for moderate to severe pain Continued cholecalciferol (vitamin D3) 1,250 mcg (50,000 unit) capsule 1,250 mcg PO QWEEK Qty: 12 3RF losartan 25 mg tablet 25 mg PO DAILY Qty: 90 3RF Discharge Instructions Instructions: Internal Derangement of the Knee Additional Instructions: X-rays show some fluid within the knee joints on both knees. Worse on the right. This can indicate a ligament injury or some severe osteoarthritis. Please wear the knee brace as needed for comfort. Rest, ice, compression elevation. Please take the medications as prescribed. No driving or operating heavy machinery while taking the medications. Please follow-up with orthopedics as previously scheduled. You may call their office to see if you can get in sooner. Follow up with primary care provider in 3-5 days. Return to ED sooner if any worsening or concerns. Please take Tylenol with food every 4-6 hours as needed for pain and swelling. You may also try [id number] diclofenac or Voltaren topical gel which is a local anti-inflammatory. Thank you for allowing us to care for you today. Referrals: Tammy Costello, DEPARTMENT [facility] [Primary Care Provider] - 1 week HPI General Mode of arrival: ambulatory . Date/Time Provider Initiated Documentation: 08/31/24 09:54 . Limitations to Documentation: no limitations . Information obtained by: patient, RN notes reviewed and old records reviewed . HPI Narrative: 54-year-old male presents to the ER with chief complaint of bilateral knee pain which has been chronic for over a year. He reports that he has had swelling in his right knee which is always swollen. He does have an appointment with orthopedics on September 21 but reports that the pain is to the point where he is having hard time working. Denies any recent injuries. Has been taking Tylenol and ibuprofen with little to no relief. Has not taken any Tylenol or ibuprofen this morning. Denies any other associated symptoms or concerns. Has not had any recent imaging. Related Data Home Medications ?Medication ?Instructions ?Recorded ?Confirmed cholecalciferol (vitamin D3) 1,250 1,250 mcg PO QWEEK #12 caps 12/03/23 08/31/24 mcg (50,000 unit) capsule losartan 25 mg tablet 25 mg PO DAILY #90 tabs 12/03/23 08/31/24 tramadol 50 mg tablet 50 mg PO BID PRN pain #10 tabs 08/31/24 Previous Rx's ?Medication ?Instructions ?Recorded cholecalciferol (vitamin D3) 1,250 1,250 mcg PO QWEEK #12 caps 12/03/23 mcg (50,000 unit) capsule losartan 25 mg tablet 25 mg PO DAILY #90 tabs 12/03/23 tramadol 50 mg tablet 50 mg PO BID PRN pain #10 tabs 08/31/24 Allergies Allergy/AdvReac Type Severity Reaction Status Date / Time buprenorphine (From Buprenex) Allergy Severe Other (See Verified 08/31/24 10:02 Comment) Iodine and Iodide Containing AdvReac Mild Nausea Verified 08/31/24 10:02 Produc General Stated Complaint: Orthopedic BEATRICE: 4 Review of Systems Musculoskeletal Musculoskeletal: Reports as per HPI, Reports arthralgias and Reports joint swelling Exam Extrem General: normal to inspection Right lower extremity: knee Details: abnormal to inspection, tenderness Location: of the medial joint line and of the lateral joint line and swelling Left lower extremity: knee Details: tenderness Location: of the medial joint line and swelling Course Vital Signs Vital signs: Vital Signs Temperature 37.1 C 08/31/24 09:56 Pulse 71 08/31/24 09:56 Respiratory Rate 12 08/31/24 09:56 Blood Pressure 174/105 H 08/31/24 09:56 Pulse Oximetry 98 08/31/24 09:56 Temperature 37.1 C 08/31/24 09:56 Temperature Source Oral 08/31/24 09:56 Pulse 71 08/31/24 09:56 Respiratory Rate 12 08/31/24 09:56 Blood Pressure 174/105 H 08/31/24 09:56 Blood Pressure Position Sitting 08/31/24 09:56 Pulse Oximetry 98 08/31/24 09:56 Oxygen Delivery Method Room Air 08/31/24 09:56 Oxygen Flow Rate 0 08/31/24 09:56 Pain Level 10 08/31/24 09:56 Comment Pain upon standing only. 08/31/24 09:56 Medical Decision Making 54-year-old male presents to the ER with chief complaint of bilateral knee pain which has been chronic for over a year. He reports that he has had swelling in his right knee which is always swollen. He does have an appointment with orthopedics on September 21 but reports that the pain is to the point where he is having hard time working. Denies any recent injuries. Has been taking Tylenol and ibuprofen with little to no relief. Has not taken any Tylenol or ibuprofen this morning. Denies any other associated symptoms or concerns. Has not had any recent imaging. Bilateral knee x-rays ordered, tramadol 50 mg p.o. X-rays show bilateral joint effusions which is indicative of possible internal derangement. Will place patient in a right hinged knee brace. Will give prescription for tramadol, instruct on RICE procedures and will place on the orthopedic follow-up list to see if they can get in any sooner. This text was generated using [employer] system, please disregard any oddities of phrase or misspellings. Medical Records Medical records reviewed: Yes I reviewed the patient's medical records. Quality:[facility] Health Related Social Needs: No Data to Display PFSH All Active Problems (Updated 08/31/24 @ 11:09 by Adelaida Gonzales NP) Bilateral knee effusions (Acute) Bilateral lower extremity edema (Acute ~04/2024) 05/20/24 Vascular Surgery - 20-30mmhg compression stockings recommended tid x 15m/each time. Venous insufficiency (Acute) Contracture of left Achilles tendon (Acute) Achilles tendinitis of left lower extremity (Acute) Pain in right foot (Acute) Gout (Chronic) Leg pain, left (Acute) Foot pain, left (Acute) Left leg swelling (Acute) Vestibular dysfunction of right ear (Acute) Snoring (Acute) 02/08/23 Sleep Clinic Consult, PSG planned Frequent headaches (Acute) Tubulovillous adenoma (Acute) Post-nasal drip (Acute) Tinnitus of right ear (Acute) Asymmetrical sensorineural hearing loss (Acute) Hypertriglyceridemia (Acute) Intra-abdominal adhesions (Chronic) Counseled at [facility] [place] [place] that he will likely eventually need a complex revision in the future Medical History Intestinal adhesions Diabetes mellitus Abnormality of right ventricle of heart (~10/2022) 10/12/22 Cardiology Morbid obesity with BMI of 45.0-49.9, adult PITER (obstructive sleep apnea) (~10/2022) 02/13/23 sleep study, F/U with Sleep Clinic on 05/31/23 and CPAP ordered on 05/24/23. 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 Dr. Anderson Surgical History History of partial colectomy 8 per pt. History of cholecystectomy 2005? 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, [employer] Sexually active: Yes Do you think of yourself as: straight/heterosexual Current gender identity: male What is your relationship status?: How often do you talk on the phone with friends or family?: three or more times per week How often do you get together with friends or relatives?: three or more times per week Do you belong to any clubs or organized social groups?: no Panel score (0-1 are the most socially isolated patients): 2 What type of physical activity do you participate in: none Nataly/Zoroastrianism: Protestant Special nataly needs: No Seatbelt use: sometimes Helmet use: No Drive intox or ride w/intox armored car guard and driver: No Working smoke detector in home: Yes Fire extinguisher in home: Yes Carbon monox detector in home: Yes Do you feel safe at home: Yes Do you feel safe in your relationship?: Yes PAWSS Have you Been Recently Intoxicated or Drunk Within the Last 30 days?: No Have you Ever Experienced Previous Episodes of Alcohol Withdrawal?: No Have you ever Experienced Withdrawal Seizures?: No Have you ever Experienced Delirium Tremens(DT)s?: No Have you ever undergone Alcohol Rehabilitation Treatment (i.e, inpt ot outpatient treatment programs)?: No Have you ever Experienced Blackouts?: No Have you ever Combined Alcohol with other Downers within the last 90 days?: No Have you ever Combined Alcohol with any other Substance of Abuse during the last 90 days?: No Positive Blood Alcohol level on Presentation? [PCS.BAL]: No Evidence of Increased Autonomic Activity (i.e. HR>120, tremor, sweating, agitation, nausea)?: No Result: 0
[2024-08-31] MEDS: traMADol 50 MG TAB PO (10:19)
--- NOTE | 2024-08-31 10:25 | DI.RAD_ITS ---
Exam(s) XR KNEE RT 3V AP,LAT,AMRIK EXAM: XR KNEE RT 3V AP,LAT,AMRIK CLINICAL HISTORY: Pain. TECHNIQUE: 2D digital imaging was performed of the right knee. Three views obtained. AP, lateral an d PA tunnel views were obtained. COMPARISON: There are no priors for comparison. FINDINGS: BONES: No acute fracture is present. No bony destructive lesion is seen. JOINTS: The knee is normally aligned. There is a moderate joint effusion. SOFT TISSUE: Normal. IMPRESSION: Moderate size joint effusion. DATA REPOSITORY: RADIATION DOSE DELIVERED:
--- NOTE | 2024-08-31 10:35 | DI.RAD_ITS ---
Exam(s) XR KNEE LT 3V AP,LAT,AMRIK EXAM: XR KNEE LT 3V AP,LAT,AMRIK CLINICAL HISTORY: Pain. TECHNIQUE: 2D digital imaging was performed of the left knee. Three images were obtained. AP, late ral and PA tunnel views were obtained. COMPARISON: There are no priors for comparison. FINDINGS: BONES: No acute fracture is present. No bony destructive lesion is seen. There is an enthesophyte at the anterior tibial tuberosity. There is an enthesophyte at the inferior patella anteriorly. JOINTS: The knee is normally aligned. There is a small joint effusion. No loose body. SOFT TISSUE: Normal. IMPRESSION: Small joint effusion. DATA REPOSITORY: RADIATION DOSE DELIVERED:
[2024-08-31 11:39] VITALS: BP 141/91; PULSE 63; RESP 18; O2SAT 100
== END 2024-08-31 11:39 | disposition home or self-care (01) ==
LOC: ER 11:46
PROVIDERS: Emergency Provider Registered Nurse Emergency; PCP Nurse Practitioner
DX: M25.462 Effusion, left knee (principal); M25.461 Effusion, right knee; I10 Essential (primary) hypertension; E78.5 Hyperlipidemia, unspecified
CPT/HCPCS: 73562; 99283

== ENCOUNTER 2024-10-22 01:04 | Outpatient (CLI) | payer OTHER, SELFPAY ==
--- NOTE | 2024-10-22 11:26 | DI.MRI_ITS ---
Exam(s) MR LOWER JOINT RT WO EXAM: MR LOWER JOINT RT WO CLINICAL HISTORY: worsening knee pain, internal derangement of rt knee, M23.91 TECHNIQUE: Multiplanar multisequence MRI of the knee was performed. COMPARISON: CR XR KNEE LT 3V AP,LAT,AMRIK from 08/31/2024 CR XR KNEE RT 3V AP,LAT,AMRIK from 08/31/2024 FINDINGS: EFFUSION: There is a prominent knee joint effusion. There is a tiny Valles cyst. There are no obvious loose intra-articular bodies. MARROW:No evidence of fractures nor prominent bone contusions. There is some subarticular edema in the most medial aspect of the medial tibial plateau and overlying outer aspect of the medial femoral condyle. There are no significant osseous lesions. PATELLOFEMORAL COMPARTMENT: The quadriceps tendon is intact. The patellar ligament is intact. There is some thinning of the retropatellar cartilage over both medial lateral facets, mostly below the equator of the patella and there is also a small focal surface defect in the mid aspect of the patellar cartilage. This does not appear to extend down to the posterior patellar surface but there is some mild edema in the posterior patella at this level.There is no intraosseous signal to suggest recent patellar dislocation. There are no patellar retinacular tears. CRUCIATE LIGAMENTS: The anterior cruciate ligament exhibits some degenerative signal but no significant tear..The posterior cruciate ligament is intact. MEDIAL COMPARTMENT/MEDIAL MENISCUS: There is a predominantly horizontal tear in the posterior horn of the medial meniscus. There is also a thin oblique tear in the outer 3rd of the posterior horn. This violates the superior articular surface of the meniscus. There is no significant meniscal extrusion nor intrusion nor flipped meniscal fragments. The anterior horn of the medial meniscus appears intact.. There is articular cartilage thinning in the mid-outer 3rd of the medial compartment and there is some underlying bone edema in the outer 3rd of the medial tibial plateau. Mild bone edema seen in the overlying outer aspect of the medial femoral condyle. MEDIAL COLLATERAL LIGAMENT: Intact LATERAL COMPARTMENT/LATERAL MENISCUS: There is no evidence of lateral meniscal tear.There is minimal if any significant articular cartilage loss in the lateral compartmentand there is no subarticular bone edema in the lateral compartment. ILIOTIBIAL BAND: Intact LATERAL COLLATERAL LIGAMENT COMPLEX: The fibular collateral ligament is intact. The biceps femoris tendon is intact.Popliteus muscle and tendon are intact. OTHER: There varicose veins noted mostly around the anterior aspect of knee. IMPRESSION: 1. There is tear of the posterior horn of the medial meniscus as described above. No displaced meniscal fragments nor bucket-handle configuration. There is significant degenerative change in the medial compartment with moderate loss of articular cartilage and subarticular bone edema. 2. Lateral compartment is unremarkable. 3. There is moderate articular cartilage loss over the posterior patella as described above. There is minimal increased subarticular signal in the posterior patella. No osteochondral defects seen at this level nor elsewhere in the. 4. Cruciate and collateral ligaments are intact. 5. There is a large joint effusion. No loose intra-articular bodies evident. DATA REPOSITORY:
--- NOTE | 2024-10-22 11:26 | DI.MRI_ITS ---
Exam(s) MR LOWER JOINT LT WO EXAM: MR LOWER JOINT LT WO CLINICAL HISTORY: worsening knee pain, internal derangement of lt knee, M25.92 TECHNIQUE: Multiplanar multisequence MRI of the knee was performed. COMPARISON: CR XR KNEE LT 3V AP,LAT,AMRIK from 08/31/2024 MR MR LOWER JOINT RT WO from 10/22/2024 FINDINGS: EFFUSION: There is a moderate size joint effusion. No Valles cyst. MARROW:There is no evidence of fracture, bone contusion, nor osteochondral defects.. There are no significant osseous lesions. PATELLOFEMORAL COMPARTMENT: The quadriceps tendon is intact. The patellar ligament is intact. There is a prominent enthesophyte at the junction of the anterior tibial tubercle and patellar ligament, seen on recent plain films. There is mild thinning of the retropatellar cartilage over the lower aspect of the lateral facet. Also some thinning of the articular trochlear cartilage this level. There is no abnormal intraosseous signal in the patella. No evidence to suggest recent patellar dislocation and there are no patellar retinacular tears. CRUCIATE LIGAMENTS: There is some irregularity of the anterior cruciate ligament noted which may reflect prior partial thickness tear. There is no full- thickness tear evident.The posterior cruciate ligament is intact. MEDIAL COMPARTMENT/MEDIAL MENISCUS: There is a complex tear in the posterior horn of the medial meniscuswhich exhibits radial and oblique components. The meniscal root appears intact.. There is no meniscal fragment displacement into the intercondylar notch. There is no tear of the anterior horn. There is only mild articular cartilage thinningin the medial compartment. No subarticular edema. No osteochondral defects. The anterior horn of the medial meniscus is intact. MEDIAL COLLATERAL LIGAMENT: Some sprain signal but no high-grade tear LATERAL COMPARTMENT/LATERAL MENISCUS: There is no evidence of lateral meniscal tear.There is no significant thinning of the articular cartilage over the lateral femoral condyle. There is no subarticular edema nor osteochondral defects and no osteophytes. ILIOTIBIAL BAND: Intact LATERAL COLLATERAL LIGAMENT COMPLEX: The fibular collateral ligament is intact. The biceps femoris tendon is intact.Popliteus muscle and tendon are intact. IMPRESSION: 1. There is a complex tear of the posterior horn of the medial meniscus as described above. There is mild articular cartilage thinning in the medial compartment. No subarticular edema nor osteochondral defects. There are no tears of the lateral meniscus and minimal if any significant degenerative ch anges in the lateral compartment. 2. There is some abnormality of the anterior cruciate ligament which has appearance of possible prior partial tearing with healing. There is no full- thickness tear of this structure. The PCL is intact. 3. There is sprain signal in the medial collateral ligament but no high-grade tear. There are no tears of the lateral collateral ligament complex components. 4. Mild thinning of the retropatellar cartilage over the lower aspect of the lateral facet as described above. No osteochondral defects at this level. 5. There is a moderate size joint effusion. DATA REPOSITORY:
== END 2024-10-22 01:24 ==
LOC: DI 01:05
PROVIDERS: PCP Nurse Practitioner; Visit Provider Nurse Practitioner Family
DX: S83.232A Complex tear of medial meniscus, current injury, left knee, initial encounter (principal); S83.241A Other tear of medial meniscus, current injury, right knee, initial encounter; X58.XXXA Exposure to other specified factors, initial encounter
CPT/HCPCS: 73721

== ENCOUNTER 2025-04-12 21:11 | Emergency (ER) | payer BC, SELFPAY ==
[2025-04-12] VITALS (22 sets, daily range): BP systolic 136–189; BP diastolic 79–106; PULSE 66–106; RESP 13–25; TEMP 36.7; O2SAT 92–97
--- NOTE | 2025-04-12 21:00 | DI.CT_ITS ---
Exam(s) CT THORAX ABD/PEL CTA EXAM: CT THORAX ABD/PEL CTA CLINICAL HISTORY: hx of aortic anneurysm, with chest pain. TECHNIQUE: Imaging Protocol: Axial CT angiography was performed with multi- slice acquisition and multi-planar and/or 3D reconstructions. Lung Computer Aided Detection (CAD) was utilized. CONTRAST MATERIAL: Intravenous: Omnipaque 350 contrast volume:100 mL Oral: No COMPARISON: CT RENAL COLIC WO CONTRAST from 09/18/[address] THORAX ABD/PEL CTA from 11/18/[address] ABDOMEN PELVIS W from 04/02/2024 FINDINGS: CHEST: Tracheobronchial tree: Patent where visualized. There is no evidence of bronchiectasis. Pulmonary parenchyma: No consolidation or dominant measurable mass. No architectural distortion. There are no new pulmonary nodules. Pulmonary Arteries: No evidence of filling defect to suggest pulmonary emboli. Mediastinum and [place]: No dominant adenopathy or fluid collection. The esophagus is unremarkable. Visualized thyroid: Unremarkable. Pleura: No effusion or pneumothorax. Heart: The heart is not dilated. Coronary artery calcifications are present. No pericardial effusion. Aorta: Thoracic aorta non-dilated. There is no evidence of dissection. Soft Tissues: Unremarkable. Bones: Within normal limits for the patient's age. ABDOMEN AND PELVIS: Abdomen: Celiac axis/mesenteric arteries: No evidence of occlusion or significant stenosis. Renal Arteries: No evidence of occlusion or significant stenosis. There is a single renal artery perfusing each kidney. Aorta: No evidence of occlusion or significant stenosis. No aneurysm or dissection. Pelvis: Iliac Arteries: No evidence of occlusion or significant stenosis. Common Femoral Arteries: No evidence of occlusion or significant stenosis. ABDOMEN: Liver: There is decreased attenuation of the liver consistent with fatty infiltration. No measurable mass. Portal, superior mesenteric and splenic veins: Unremarkable. Gallbladder and Biliary Tract: Status post cholecystectomy. There is no significant biliary ductal dilatation. Pancreas: Normal density, no abnormal calcifications or inflammatory process. Spleen: Normal. Adrenals: No masses seen. Kidneys: Normal size, contour and axis. There is a nonobstructing stone in the lower pole of the left kidney. No masses seen. Bowel: No obstruction or bowel wall thickening. There is no evidence of appendicitis. There is an anastomosis seen in the small bowel in the right abdomen. Peritoneal Cavity: No ascites, collection or mesenteric inflammatory response. No free air. Lymph Nodes: Within normal limits. Bones: Within normal limits for the patient's age. Soft Tissues: There are small fat containing inguinal hernias. PELVIS: Bladder: Symmetric distention, no gross wall thickening. Reproductive Organs: The prostate gland is mildly enlarged. Prostatic calcifications are present. Lymph Nodes: Within normal limits. Bones: Within normal limits for the patient's age. IMPRESSION: 1. There is no acute abdominal or pelvic process. 2. There is no evidence of a pulmonary embolism, thoracic aortic dissection or aneurysm. 3. There is no evidence of an abdominal aneurysm or dissection. 4. No acute pulmonary process. 5. The preliminary [facility] report was reviewed. RADIATION DOSE DELIVERED: 2,535.58mGy.cm Total DLP DATA REPOSITORY: All CT scans at this facility are submitted to the National Radiology Data Registry (NRDR) Dose Index Registry (DIR) with the [employer] (ACR). RADIATION OPTIMIZATION: All CT scans at this facility use at least one of these dose optimization techniques: automated exposure control; mA and/or kV adjustment per patient size (includes targeted exams where dose is matched to clinical indication); or iterative reconstruction.
--- NOTE | 2025-04-12 21:00 | RT.EKG_ITS ---
APPROVED REPORT Exam: Resting ECG Reason for Exam: Patient Location: E HR:101 bpm ECG Measurements Heart Rate 101 AXIS TX 165 P 21 QRSd 108 QRS -12 QT 372 T 63 QTc 482 Conclusion Sinus tachycardia...rate> 99 ST depr, consider ischemia, inferior leads...ST <-0.10mV, II III aVF No STEMI
[2025-04-12 21:26] LABS: Abs Immature Grans 0.03 10^3/uL (0.0-0.06); HCT 41.6 % (40.0-50.0); HGB 14.1 g/dL (13.5-17.5); Immature Grans % 0.4 %; MCH 28.3 pg (27.0-33.0); MCHC 33.9 % (32.0-36.0); MCV 83 fL (80-95); MPV 9.5 fL (8.0-11.0); Platelet Count 161 10^3/uL (130-400); RBC 4.99 10^6/uL (4.36-5.78); RDW 12.7 % (11.8-14.1); RDW-SD 38.4 fL; WBC 7.79 10^3/uL (4.4-10.8)
[2025-04-12] MEDS: ACETAMINOPHEN 1,000 MG/100 ML BAG 400 MG IVPB (21:28)
[2025-04-12] MEDS: Omnipaque 350 MG/ML 100 ML BTL IJ (21:31)
[2025-04-12] MEDS: Normal Saline - Diluent 50 ML VIAL IJ (21:34)
[2025-04-12] MEDS: Normal Saline Flush 10 ML SYR IVP (21:35)
[2025-04-12 21:43] LABS: INR 1.0 (0.9-1.1); Lipase 37 U/L (<53); PTT Activated 25.2 sec (20.6-30.2); Prothrombin Time 10.0 sec (9.1-11.1)
[2025-04-12 21:44] LABS: Troponin I 3 ng/L (<54)
[2025-04-12 21:45] LABS: ALT 40 U/L (10-49); AST 21 U/L (<34); Albumin 4.2 g/dL (3.2-5.0); Alkaline Phosphatase 71 U/L (46-116); Anion Gap 8.4 mmol/L (3-11); BUN 15 mg/dL (9-23); Bilirubin, Total 0.40 mg/dL (0.2-1.2); CO2 25.6 mmol/L (20.0-31.0); Calcium 8.9 mg/dL (8.3-10.6); Chloride 107 mmol/L (98-107); Glucose 264 mg/dL (74-106); Potassium 3.8 mmol/L (3.5-5.1); Sodium 141 mmol/L (136-145); Total Protein 7.0 g/dL (5.7-8.2)
[2025-04-12] MEDS: Ondansetron 4 MG/2 ML VIAL IVP (21:46)
--- NOTE | 2025-04-12 22:04 | NUR.NOTE ---
Called and gave report to Beatriz from [facility].
[2025-04-12 22:33] LABS: Troponin I 4 ng/L (<54)
--- NOTE | 2025-04-12 22:54 | W.ED.GENAD ---
Discharge Plan Disposition Patient Disposition: Home Discharge Details Clinical Impression: Atypical chest pain, Incidental pulmonary nodule Primary Care Provider: Silvia Melendez ED Provider: Foreign Barnes Home Meds and New Rx's Prescriptions: No Action losartan 25 mg tablet 25 mg PO DAILY Qty: 90 3RF celecoxib [Celebrex] 100 mg capsule 100 mg PO BID Qty: 60 3RF cholecalciferol (vitamin D3) 1,250 mcg (50,000 unit) capsule 1,250 mcg PO QWEEK Qty: 12 3RF cephalexin 500 mg capsule 500 mg PO TID Rx Instructions: Take one cap TID for 10 days if infection in tow starts before procedure Discharge Instructions Instructions: Pulmonary nodule, Chest Pain, Adult ED Additional Instructions: Please follow-up with your primary care provider regarding your visit to the emergency department today. Be sure to discuss results of all test performed here today to include radiology, and laboratory testing as well as results for any pending cultures. Be sure to address address follow-up imaging for the noted pulmonary nodule on your right lower lung on the CT performed today. THis is typically recommended to occur annually for your size nodule. Should your symptoms worsen, or if you develop new concerning symptoms, please return immediately emergency department for further evaluation. Stand Alone Forms: Portal Information Discharge Data Discharge Date/Time-TO BE ENTERED AT DEPARTURE: 04/12/25 23:20 HPI General Date/Time Provider Initiated Documentation: 04/12/25 21:22. HPI Narrative: MDM/Narrative: 55-year-old male with past medical history of gastritis/PUD presents for pleuritic chest pain which began after eating a muffin. Vital signs within normal limits. Physical exam is otherwise unremarkable. Patient's chest pain is atypical however given his pleuritic nature and severity, will consider resending pathology such as ACS, as well as PE although patient is low risk, initial vital signs are tachycardic. Will obtain EKG, troponin, CTA of the chest as well as provide treatment for possible peptic ulcer disease with a GI cocktail and Tylenol. ED course: EKG, troponins are not consistent with ACS. Patient without leukocytosis anemia or other significant metabolic derangement. Chest x-ray concerning for possible atelectasis versus infiltrate. Given patient's persistent pleuritic pain, initial tachycardia and abnormal chest x-ray will obtain CTA to rule out PE. CT shows no acute infiltrates or pulmonary embolism. On reassessment patient notes significant improvement following administration of medications. Given atypical chest pain do not believe patient requires inpatient restratification for ACS, will discharge to follow-up with primary care recommendation to follow-up to discuss indications for upper endoscopy. Disposition: Home HPI: 55-year-old male past medical history of recurrent GERD without significant workup, as well as IBS, presents for evaluation for pleuritic chest pain, which began shortly after eating a muffin. He notes that these muffins can often cause his GERD symptoms to worsen however that is typically not a pleuritic pain in nature. Denies associated shortness of breath, fever, chills, cough, vomiting or any other new or concerning symptoms. ROS: Negative besides as mentioned above Exam: Gen: A&O NAD HEENT: NCAT, EOMI, not icteric. External ears normal. No rhinorrhea. Moist mucous membranes. Neck: Supple, full range of motion, no observable masses, No meningeal sign. Lungs: No Respiratory distress. CV: RRR, no edema. Abdomen: Soft, nondistended, No rebound tenderness. MSK: No joint swelling, no redness. Skin: No rashes, petechiae, lesions. Normal color per patient. Neuro: Normal Gait, Grossly intact. Psych: Appropriate for situation. Rhythm: Sinus tachycardia Rate: 101 [place]: Normal axis Intervals: Normal intervals Other findings: Wavy baseline. no acute ST segment or T wave changes to suggest acute ischemia. Labs: Laboratory Tests Range/Units 04/12/25 04/12/25 21:16 22:10 WBC (4.4-10.8) 10^3/uL 7.79 RBC (4.36-5.78) 10^6/uL 4.99 Hgb (13.5-17.5) g/dL 14.1 Hct (40.0-50.0) % 41.6 MCV (80-95) fL 83 MCH (27.0-33.0) pg 28.3 MCHC (32.0-36.0) % 33.9 RDW (11.8-14.1) % 12.7 Plt Count (130-400) 10^3/uL 161 MPV (8.0-11.0) fL 9.5 Immature Gran % % 0.4 Neutrophils % % 61.0 Lymphocytes % % 29.1 Monocytes % % 6.5 Eosinophils % % 2.6 Basophils % % 0.4 Nucleated RBC % (0.0-0.3) % 0.0 Absolute Neutrophils (1.2-6.7) 10^3/uL 4.75 Absolute Lymphocytes (1.2-3.4) 10^3/uL 2.27 Absolute Monocytes (0.1-0.8) 10^3/uL 0.51 Absolute Eosinophils (0.0-0.7) 10^3/uL 0.20 Absolute Basophils (0.0-0.2) 10^3/uL 0.03 PT (9.1-11.1) sec 10.0 INR (0.9-1.1) 1.0 APTT (20.6-30.2) sec 25.2 VBG Lactate (<or=2.0) mmol/L 1.5 Sodium (136-145) mmol/L 141 Potassium (3.5-5.1) mmol/L 3.8 Chloride (98-107) mmol/L 107 Carbon Dioxide (20.0-31.0) mmol/L 25.6 Anion Gap (3-11) mmol/L 8.4 BUN (9-23) mg/dL 15 Creatinine (0.73-1.18) mg/dL 0.89 Est GFR (CKD-EPI 2020) (mL/min/1.73m2) 88.37 Glucose (74-106) mg/dL 264 H Calcium (8.3-10.6) mg/dL 8.9 Total Bilirubin (0.2-1.2) mg/dL 0.40 AST (<34) U/L 21 ALT (10-49) U/L 40 Alkaline Phosphatase (46-116) U/L 71 Troponin I (<54) ng/L 3 4 NT-Pro-B Natriuret Pep (<300) pg/mL < 35 Total Protein (5.7-8.2) g/dL 7.0 Albumin (3.2-5.0) g/dL 4.2 Lipase (<53) U/L 37 ABO/Rh A Negative Antibody Screen NEGATIVE Radiology: PROCEDURE INFORMATION: Exam: CTA Chest With Contrast CTA Abdomen and Pelvis With Contrast Exam date and time: 04/12/2025 9:55 PM Age: 55 years old Clinical indication: Other: HX of aortic anneurysm, with chest pain TECHNIQUE: Imaging protocol: Computed tomographic angiography of the chest with contrast. Exam focused on the arteries. Computed tomographic angiography of the abdomen and pelvis with contrast. Exam focused on the arteries. 3D rendering (Not supervised by radiologist): MIP and/or 3D reconstructed images were created by the technologist. Contrast material: OMNI 350; Contrast volume: 100 ml; Contrast route: INTRAVENOUS (IV); COMPARISON: CT THORAX ABD/PEL CTA 11/18/2023 10:37 AM FINDINGS: VASCULATURE: Pulmonary arteries: Main pulmonary artery normal caliber. No pulmonary artery filling defects. Aorta: Thoracoabdominal aorta normal in caliber. No aortic dissection. Celiac and mesenteric arteries: No occlusion or significant stenosis. Renal arteries: No occlusion or significant stenosis. Right iliac arteries: No occlusion or significant stenosis. Left iliac arteries: No occlusion or significant stenosis. CHEST: Lungs: Stable 5 mm nodule in basilar right lower lobe, . Pleural spaces: Unremarkable. No pneumothorax. No pleural effusion. WILLIAM LENTZ Preliminary Radiology Report WIRE SPINNER (QA) DISCREPANCY? If there is a discrepancy between the preliminary and final interpretation, please notify [facility] via [email or web address]. If you do not have access to our QA portal, call our QA team at [phone] CONFIDENTIALITY STATEMENT This report is intended only for the use of the referring physician, and only in accordance with law, If you received this in error, call [phone] Page 2 of 2 Heart: Heart top-normal in size. No pericardial effusion. Heart RV/LV ratio: 1.0. Coronary arteries: Coronary artery calcification. ABDOMEN AND PELVIS: Liver: Normal in size. No mass. Gallbladder and biliary ducts: Cholecystectomy. No biliary ductal dilatation. Pancreas: Unremarkable. No mass. No ductal dilation. Spleen: Unremarkable. No splenomegaly. Adrenal glands: Unremarkable. No mass. Kidneys and ureters: Minute radiopaque calculus in left lower pole. No solid mass. No hydronephrosis. Stomach and bowel: Unremarkable. No obstruction. No mucosal thickening. Appendix: Normal in appearance, . Intraperitoneal space: Unremarkable. No free air. No significant fluid collection. Urinary bladder: Unremarkable. No mass. Reproductive: Prostate minimally enlarged with parenchymal calcifications. Lymph nodes: Unremarkable. No enlarged lymph nodes. Bones/joints: The spine demonstrates mild degenerative changes at multiple levels. Soft tissues: Unremarkable. IMPRESSION: 1. No aortic aneurysm or dissection. 2. Coronary artery disease. 3. No pulmonary artery embolism demonstrated. 4. No mesenteric, renal or iliac arterial occlusive disease. 5. Several additional findings. Thank you for allowing us to participate in the care of your patient. Dictated and Authenticated by: Jesus Lee, DO Related Data Home Medications ?Medication ?Instructions ?Recorded ?Confirmed cholecalciferol (vitamin D3) 1,250 1,250 mcg PO QWEEK #12 caps 12/03/23 04/12/25 mcg (50,000 unit) capsule celecoxib 100 mg capsule (Celebrex) 100 mg PO BID knee pain #60 caps 09/29/24 04/12/25 cephalexin 500 mg capsule 500 mg PO TID 12/01/24 04/12/25 losartan 25 mg tablet 25 mg PO DAILY #90 tabs 02/04/25 04/12/25 Previous Rx's ?Medication ?Instructions ?Recorded cholecalciferol (vitamin D3) 1,250 1,250 mcg PO QWEEK #12 caps 12/03/23 mcg (50,000 unit) capsule celecoxib 100 mg capsule (Celebrex) 100 mg PO BID knee pain #60 caps 09/29/24 losartan 25 mg tablet 25 mg PO DAILY #90 tabs 02/04/25 Allergies Allergy/AdvReac Type Severity Reaction Status Date / Time buprenorphine (From Buprenex) Allergy Severe Other (See Verified 04/12/25 21:29 Comment) Iodine and Iodide Containing AdvReac Mild Nausea Verified 04/12/25 21:29 Produc General Stated Complaint: Chest Pain BEATRICE: 2 Course Vital Signs Vital signs: Vital Signs Temperature 36.7 C 04/12/25 21:07 Pulse 106 H 04/12/25 21:07 Respiratory Rate 18 04/12/25 21:07 Blood Pressure 189/106 H 04/12/25 21:07 Pulse Oximetry 96 04/12/25 21:07 Temperature 36.7 C 04/12/25 21:07 Temperature Source Oral 04/12/25 21:07 Pulse 106 H 04/12/25 21:07 Respiratory Rate 20 04/12/25 21:17 Respiratory Effort Normal, Non-Labored 04/12/25 21:17 Respiratory Depth Normal 04/12/25 21:17 Respiratory Pattern Normal 04/12/25 21:17 Blood Pressure 189/106 H 04/12/25 21:07 Pulse Oximetry 96 04/12/25 21:07 Oxygen Delivery Method Room Air 04/12/25 21:07 Oxygen Flow Rate 0 04/12/25 21:07 Lab/Test Results Lab/Test Results: Laboratory Tests Range/Units 04/12/25 04/12/25 21:16 22:10 WBC (4.4-10.8) 10^3/uL 7.79 RBC (4.36-5.78) 10^6/uL 4.99 Hgb (13.5-17.5) g/dL 14.1 Hct (40.0-50.0) % 41.6 MCV (80-95) fL 83 MCH (27.0-33.0) pg 28.3 MCHC (32.0-36.0) % 33.9 RDW (11.8-14.1) % 12.7 Plt Count (130-400) 10^3/uL 161 MPV (8.0-11.0) fL 9.5 Immature Gran % % 0.4 Neutrophils % % 61.0 Lymphocytes % % 29.1 Monocytes % % 6.5 Eosinophils % % 2.6 Basophils % % 0.4 Nucleated RBC % (0.0-0.3) % 0.0 Absolute Neutrophils (1.2-6.7) 10^3/uL 4.75 Absolute Lymphocytes (1.2-3.4) 10^3/uL 2.27 Absolute Monocytes (0.1-0.8) 10^3/uL 0.51 Absolute Eosinophils (0.0-0.7) 10^3/uL 0.20 Absolute Basophils (0.0-0.2) 10^3/uL 0.03 PT (9.1-11.1) sec 10.0 INR (0.9-1.1) 1.0 APTT (20.6-30.2) sec 25.2 VBG Lactate (<or=2.0) mmol/L 1.5 Sodium (136-145) mmol/L 141 Potassium (3.5-5.1) mmol/L 3.8 Chloride (98-107) mmol/L 107 Carbon Dioxide (20.0-31.0) mmol/L 25.6 Anion Gap (3-11) mmol/L 8.4 BUN (9-23) mg/dL 15 Creatinine (0.73-1.18) mg/dL 0.89 Est GFR (CKD-EPI 2020) (mL/min/1.73m2) 88.37 Glucose (74-106) mg/dL 264 H Calcium (8.3-10.6) mg/dL 8.9 Total Bilirubin (0.2-1.2) mg/dL 0.40 AST (<34) U/L 21 ALT (10-49) U/L 40 Alkaline Phosphatase (46-116) U/L 71 Troponin I (<54) ng/L 3 4 NT-Pro-B Natriuret Pep (<300) pg/mL < 35 Total Protein (5.7-8.2) g/dL 7.0 Albumin (3.2-5.0) g/dL 4.2 Lipase (<53) U/L 37 ABO/Rh A Negative Antibody Screen NEGATIVE [facility] All Active Problems (Updated 04/12/25 @ 22:59 by Foreign Barnes MD) Incidental pulmonary nodule (Acute) Atypical chest pain (Acute) Cellulitis and abscess of left leg (Acute) Cellulitis of right toe (Acute) 11/25/24 [facility] Podiatry note Primary osteoarthritis of left knee (Acute) 11/19/24 [facility] Ortho note Ingrown toenail (Acute) Bilateral primary osteoarthritis of knee (Acute) 10/28/24 Orthopedics - steroid inject R knee Internal derangement of both knees (Acute) Bilateral lower extremity edema (Acute ~04/2024) 05/20/24 Vascular Surgery - 20-30mmhg compression stockings recommended tid x 15m/each time. Venous insufficiency (Acute) Contracture of left Achilles tendon (Acute) Achilles tendinitis of left lower extremity (Acute) Pain in right foot (Acute) Gout (Chronic) Leg pain, left (Acute) Foot pain, left (Acute) Left leg swelling (Acute) Vestibular dysfunction of right ear (Acute) Snoring (Acute) 02/08/23 Sleep Clinic Consult, PSG planned Frequent headaches (Acute) Tubulovillous adenoma (Acute) Post-nasal drip (Acute) Tinnitus of right ear (Acute) Asymmetrical sensorineural hearing loss (Acute) Hypertriglyceridemia (Acute) Intra-abdominal adhesions (Chronic) Counseled at [facility] that he will likely eventually need a complex revision in the future Medical History Intestinal adhesions Diabetes mellitus Abnormality of right ventricle of heart (~10/2022) 10/12/22 Cardiology Morbid obesity with BMI of 45.0-49.9, adult PITER (obstructive sleep apnea) (~10/2022) 02/13/23 sleep study, F/U with Sleep Clinic on 05/31/23 and CPAP ordered on 05/24/23. 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 Dr. Anderson Surgical History History of partial colectomy 8 per pt. History of cholecystectomy 2005? 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, [employer] Sexually active: Yes Do you think of yourself as: straight/heterosexual Current gender identity: male What is your relationship status?: How often do you talk on the phone with friends or family?: three or more times per week How often do you get together with friends or relatives?: three or more times per week Do you belong to any clubs or organized social groups?: no Panel score (0-1 are the most socially isolated patients): 2 What type of physical activity do you participate in: none Nataly/Oriental Orthodox: Uatsdin Special nataly needs: No Seatbelt use: sometimes Helmet use: No Drive intox or ride w/intox driver license reviewing officer: No Working smoke detector in home: Yes Fire extinguisher in home: Yes Carbon monox detector in home: Yes Do you feel safe at home: Yes Do you feel safe in your relationship?: Yes
== END 2025-04-12 23:20 | disposition home or self-care (01) ==
PROVIDERS: Emergency Provider General Practice; PCP Nurse Practitioner Family
DX: R07.89 Other chest pain (principal); R91.1 Solitary pulmonary nodule; R00.1 Bradycardia, unspecified; E11.9 Type 2 diabetes mellitus without complications; E78.5 Hyperlipidemia, unspecified
CPT/HCPCS: 36415; 71275; 80053; 83690; 86850; 86900; 86901; 93005; 96365; 96375; 99285; 74174; 83605; 83880; 84484; 85025; 85610; 85730; 93010; J0131; J2405; J3490

== ENCOUNTER 2025-04-23 01:37 | Outpatient (CLI) | payer BC, SELFPAY ==
[2025-04-23 10:14] LABS: Anion Gap 9 mmol/L (3-11); BUN 14 mg/dL (9-23); CO2 26.0 mmol/L (20.0-31.0); Calcium 9.3 mg/dL (8.3-10.6); Chloride 106 mmol/L (98-107); Glucose 156 mg/dL (74-106); Potassium 4.3 mmol/L (3.5-5.1); Sodium 141 mmol/L (136-145)
== END 2025-04-23 01:38 | disposition home or self-care (01) ==
LOC: LBO 01:37
PROVIDERS: PCP Nurse Practitioner Family; Visit Provider Nurse Practitioner Family
DX: I10 Essential (primary) hypertension (principal)
CPT/HCPCS: 36415; 80048

== ENCOUNTER 2025-04-23 09:43 | Outpatient (CLI) | payer BC, SELFPAY | END 2025-04-23 09:44 | disposition home or self-care (01) | PROVIDERS: PCP Nurse Practitioner Family; Visit Provider Nurse Practitioner Family | DX: R55 Syncope and collapse (principal) | CPT/HCPCS: 93246 ==

== ENCOUNTER 2025-04-28 00:38 | Outpatient (CLI) | payer BC, SELFPAY ==
--- NOTE | 2025-04-28 15:16 | W.NUTRFU ---
Date of service: 04/28/25 Time of Service: 14:00 Nutrition Note NOTE: Met with Juan who was referred to nutrition for support with his goal to reverse MASLD and lose weight (fat). 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 Drinks energy drinks and finds it helps his task-learning/concentration(they are not sugar free options). We discussed menu planning and addressing habits to support low added sugar and lower fat diet. I encouraged eating breakfast so he doesn't miss out on a change to get protein and fiber and fall short for the day. Suggested he talk with provider about supplementing with milk thistle to help prevent scarring of liver and general liver health. Gave him numbers to plug in to menu planning resource for 2,300kcal diet for wt loss, as well as ~172g protein, at least 35 g fiber, no more than 40g added sugar, 230g total carbs, and 72g total fat (25 g max of SFA) and how to edit according to his preferences. Emphasized added sugars need to be reduced and should try to avoid added sugars, sugars in drinks and especially forms of fructose outside of traditional, whole fruit. He has my contact info should he desire follow up and told him to feel free to reach out with any questions or need to trouble shoot further. Time Spent in Nutritional Counseling and Treatment: 40 min
== END 2025-04-28 00:39 | disposition home or self-care (01) ==
LOC: DS 00:38
PROVIDERS: PCP Nurse Practitioner Family; Visit Provider Dietitian, Registered
DX: I10 Essential (primary) hypertension (principal); K76.0 Fatty (change of) liver, not elsewhere classified
CPT/HCPCS: 00123; 97802